=== PATIENT | female | born 1955 | race Caucasian/White ===

== ENCOUNTER 2017-08-21 08:15 | Outpatient (CLI) | payer BC ==
--- NOTE | 2017-08-22 14:15 | PET Report ---
PET/CT:08/21/17 08:15:00 CLINICAL: Lung cancer initial staging. RADIOPHARMACEUTICAL: 14.57mCi F18-FDG. COMPARISON: CT Chest 08/03/17 TECHNIQUE- Following intravenous injection of F-18 FDG and an approximately 60 minute uptake period, CT and PET images from the mid skull to the upper thighs were acquired with the patient in the fasted state. No contrast was administered. The CT protocol used for this PET CT study is designed for attenuation correction and anatomic localization of PET abnormalities. This final inspector truck trailer CT is not desired to produce and cannot replace, [id number] diagnostic CT scans with specific imaging protocols for different body parts and indications. Plasma glucose at the time of this test: 198g/dl. The standardized uptake values (SUV) are normalized to patient body weight and indicate the highest activity concentration (SUV max) in a given disease site. FINDINGS: Brain--Physiologic FDG uptake in the visualized regions of the brain. Neck--Physiologic FDG uptake . Chest--Physiologic FDG uptake in mediastinal blood pool and myocardium. Lungs--An FDG avid left lower lobe lung mass measures 7.0 x 5.8 x 5.5 cm with SUV 7.25. Pleura/pericardium--No abnormal uptake. A small left pleural effusion. Thoracic nodes--No abnormal uptake. Hepatobiliary--No abnormal uptake. Liver background SUV mean, as a reference for comparing FDG studies, is 2.7 . No liver mass. Spleen--No abnormal uptake. Pancreas--No abnormal uptake. Adrenal Glands--No abnormal uptake. Kidneys/Ureters/Bladder--No abnormal uptake. Abdominopelvic Nodes--No abnormal uptake. Bowel/Peritoneum/Mesentery--No abnormal uptake. Pelvic organs--No abnormal uptake. Bones/Soft Tissues--No abnormal uptake. No suspicious bone lesions. IMPRESSION- A 7 cm left lower lobe bronchogenic carcinoma. No evidence of metastasis.
== END 2017-08-21 08:16 | disposition home or self-care (01) ==
LOC: PET 08:15
PROVIDERS: ATTEND Internal Medicine
DX: C10.4 Malignant neoplasm of branchial cleft (principal); C34.92 Malignant neoplasm of unspecified part of left bronchus or lung; J90 Pleural effusion, not elsewhere classified; Z79.899 Other long term (current) drug therapy
CPT/HCPCS: 78815; 82962; A9552

== ENCOUNTER 2017-10-10 17:25 | Inpatient (IN) | payer BC ==
--- NOTE | 2017-10-10 19:04 | Emergency Department Report ---
HPI - General Chief Complaint: Eye Problems Time Seen by Provider: 10/10/17 18:38 - HPI HPI: This is a 62-year-old female who presents to the emergency department and her ECF with a complaint of blurry vision that started about 1 PM this afternoon. The patient's daughter is bedside as well and pointed out that her eyes do not appear to be moving appropriately and that this is a change from prior to today. She denies any headache, slurred speech, confusion or dizziness. She has a past medical history of COPD on 2 L nasal cannula, diabetes, lung cancer, anemia, chronic kidney disease, coronary artery disease with stent, hypertension. Her primary care physician is Dr. Limon. Her rubber press tender is Dr. Rodriguez. She has not taken anything for her symptoms prior to presentation. No recent travel. ED Past Medical Hx - Past Medical History Previous Medical History?: Yes Hx Hypertension: Yes Hx Heart Attack/AMI: Yes (stent) Hx Congestive Heart Failure: No Hx Diabetes: Yes Hx Deep Vein Thrombosis: No Hx Renal Disease: Yes Hx Asthma: No Hx COPD: Yes - Surgical History Past Surgical History?: Yes Hx Coronary Stent: Yes Hx Pacemaker: No Hx Internal Defibrillator: No Hx Cholecystectomy: Yes Additional Surgical History: CATARACT SURGERY - Social History Smoking Status: Never Smoker Substance Use Type: None - Medications Home Medications: Home Medications Medication Instructions Recorded Confirmed Last Taken Type AtorvaSTATin [Lipitor] 80 mg PO QHS 08/01/17 10/10/17 09/02/17 History Ezetimibe [Zetia] 10 mg PO QDAY 08/01/17 10/10/17 09/02/17 History Famotidine [Pepcid] 20 mg PO QDAY #30 tablet 09/10/17 10/10/17 Unknown Rx Amiodarone [Cordarone 200 MG TAB] 200 mg PO BID #60 tablet 09/17/17 10/10/17 Unknown Rx Ferrous Sulfate [Feosol 325 MG tab] 325 mg PO BID #60 tablet 09/17/17 10/10/17 Unknown Rx Insulin Detemir [Levemir] 8 units SUB-Q QHS #1 vial 09/17/17 10/10/17 Unknown Rx Metoprolol [Lopressor TAB] 25 mg PO TID #90 tablet 09/17/17 10/10/17 Unknown Rx Aspirin [Adult Low Dose Aspirin EC] 81 mg PO QDAY 10/10/17 10/10/17 Unknown History ED Review of Systems ROS: Stated complaint: BLURRED VISION Other details as noted in HPI Comment: All other systems reviewed and negative Constitutional: denies: chills, fever Eyes: vision change. denies: eye pain ENT: denies: ear pain, throat pain Respiratory: denies: cough, shortness of breath, wheezing Cardiovascular: denies: chest pain, palpitations Gastrointestinal: denies: abdominal pain, nausea, diarrhea Genitourinary: denies: urgency, dysuria, discharge Musculoskeletal: denies: back pain, joint swelling, arthralgia Skin: denies: rash, lesions Neurological: denies: headache, weakness, paresthesias Physical Exam - Physical Exam Vital Signs: Vital Signs 10/10/17 10/10/17 10/10/17 17:34 17:40 17:41 Temperature Pulse Rate 70 70 Respiratory 20 22 Rate Blood Pressure 136/76 [Right] O2 Sat by Pulse 68 L 67 L 91 Oximetry 10/10/17 10/10/17 17:42 17:44 Temperature 98.9 F Pulse Rate Respiratory 20 Rate Blood Pressure [Right] O2 Sat by Pulse 97 Oximetry ED Course Vital Signs 10/10/17 10/10/17 10/10/17 17:34 17:40 17:41 Temperature Pulse Rate 70 70 Respiratory 20 22 Rate Blood Pressure 136/76 [Right] O2 Sat by Pulse 68 L 67 L 91 Oximetry 10/10/17 10/10/17 17:42 17:44 Temperature 98.9 F Pulse Rate Respiratory 20 Rate Blood Pressure [Right] O2 Sat by Pulse 97 Oximetry - Consultations Consultation #1: I spoke to the telemedicine neurologist, Dr Cobb, who agrees with the plan for admission to the hospital and MRI and further evaluation. 10/11/17 00:25 ED Medical Decision Making - Lab Data Result diagrams: 10/10/17 19:00 10/10/17 19:00 - EKG Data -: EKG Interpreted by Me EKG shows normal: sinus rhythm, axis, intervals (prolonged QT and QTC intervals) , QRS complexes, ST-T waves (nonspecific and/or flattening of the T waves) Rate: normal - EKG Data When compared to previous EKG there are: changes noted (previous EKG showed atrial fibrillation) Interpretation: other (sinus rhythm, 68 bpm, prolonged QT and QTC intervals, flattening of the T waves) - Radiology Data Radiology results: report reviewed PROCEDURE: CT HEAD/BRAIN WO CON TECHNIQUE: Computerized tomography of the head was performed without contrast material. HISTORY: blurred vision, left eye no longer moving normally COMPARISON: Prior CT scan of the brain 09/03/2017 FINDINGS: Brain: There is no evidence of intracranial hemorrhage. No parenchymal hemorrhage is seen. No mass lesions or mass effect is identified. No abnormal extra-axial fluid collections or masses are seen. There is some decreased density seen in the periventricular white matter without mass effect. This is mildly asymmetric, a little more prominent on the left than the right which is unchanged. This does not exhibit any mass effect consistent with gliosis probably on the basis of microvascular disease or white matter changes of aging. Ventricles: The ventricles, sulcal pattern and fissures are prominent consistent with atrophy. Bones: No evidence of acute fracture. Paranasal sinuses: Visualized portions appear clear. Mastoid air cells: There opacification in numerous mastoid air cells bilaterally left side greater than right. This is new compared to the prior study consistent with acute mastoiditis. IMPRESSION: Stable CT of the brain showing evidence of moderate atrophy and gliosis. No acute intracranial abnormalities are identified. Interval development of bilateral mastoiditis left side worse than the right. - Medical Decision Making This patient presents after having acute blurred vision about 1 PM this afternoon. She was also found to have some abnormal extraocular motion and the left eye does not have adduction and also appears to be slightly superior compared to the right side. CT did not show any acute bleed, shift, mass or any ischemic changes at this time. However there is still concern for a posterior or brainstem stroke and the patient will require MRI. Telemedicine neurology was contacted and they agree with aspirin but patient is not a TPA candidate. She has some renal insufficiency, hypokalemia. She will be admitted to the hospital and has been accepted by the hospitalist, Dr. Hathaway. - Differential Diagnosis CVA, TIA, intranuclear ophthalmolplegia, Vertigo Critical Care Time: No Critical care attestation.: If time is entered above; I have spent that time in minutes in the direct care of this critically ill patient, excluding procedure time. ED Disposition Clinical Impression: Internuclear ophthalmoplegia of left eye, Blurred vision, Anemia, Hypokalemia Disposition: OP ADMIT IP TO THIS HOSP Is pt being admited?: Yes Condition: Stable Time of Disposition: 00:28
[2017-10-10 19:25] LABS: Basophils % (Auto) 0.2 % (0.0-1.8); Eosinophils % (Auto) 0.3 % (0.0-4.3); Hematocrit 25.2 % (30.3-42.9); Hemoglobin 7.9 gm/dl (10.1-14.3); Mean Corpuscular HGB Conc 31 % (30-34); Mean Corpuscular Hemoglobin 27 pg (28-32); Mean Corpuscular Volume 85 fl (79-97); Platelet Count 290 K/mm3 (140-440); Red Blood Count 2.95 M/mm3 (3.65-5.03); White Blood Count 10.6 K/mm3 (4.5-11.0)
[2017-10-10 19:33] LABS: Red Cell Distribution Width 21.2 % (13.2-15.2)
[2017-10-10 19:37] LABS: Albumin 2.2 g/dL (3.9-5); Albumin/Globulin Ratio 0.5 %; Bilirubin,Total 0.5 mg/dL (0.1-1.2); Calcium 8.1 mg/dL (8.4-10.2); Chloride 95.5 mmol/L (98-107); Total Protein 6.3 g/dL (6.3-8.2)
--- NOTE | 2017-10-10 20:10 | Cat Scan Report ---
FINAL REPORT PROCEDURE: CT HEAD/BRAIN WO CON TECHNIQUE: Computerized tomography of the head was performed without contrast material. HISTORY: blurred vision, left eye no longer moving normally COMPARISON: Prior CT scan of the brain 09/03/2017 FINDINGS: Brain: There is no evidence of intracranial hemorrhage. No parenchymal hemorrhage is seen. No mass lesions or mass effect is identified. No abnormal extra-axial fluid collections or masses are seen. There is some decreased density seen in the periventricular white matter without mass effect. This is mildly asymmetric, a little more prominent on the left than the right which is unchanged. This does not exhibit any mass effect consistent with gliosis probably on the basis of microvascular disease or white matter changes of aging. Ventricles: The ventricles, sulcal pattern and fissures are prominent consistent with atrophy. Bones: No evidence of acute fracture. Paranasal sinuses: Visualized portions appear clear. Mastoid air cells: There opacification in numerous mastoid air cells bilaterally left side greater than right. This is new compared to the prior study consistent with acute mastoiditis. IMPRESSION: Stable CT of the brain showing evidence of moderate atrophy and gliosis. No acute intracranial abnormalities are identified. Interval development of bilateral mastoiditis left side worse than the right.
[2017-10-10] MEDS ORDERED: K-DUR PO ONE (20:52)
--- NOTE | 2017-10-10 22:13 | History and Physical Report ---
History of Present Illness Date of examination: 10/10/17 History of present illness: 62-year-old with a history of coronary artery disease, hypertension, diabetes, end-stage renal disease, lung cancer was brought to the emergency room from rehab because she complained of blurred and double vision in the left eye. The daughter noticed that the left eye was not moving medially Review Of Systems: Constitutional: no weight loss Ears, eyes, nose, mouth and throat: no nasal congestion, no nasal discharge, no sinus pressure, blurry vision, diplopia Neck: No neck pain or rigidity. Cardiovascular: no chest pain, orthopnea, palpitations Respiratory: No shortness of breath, cough Gastrointestinal: no abdominal pain, hematochezia Genitourinary : no dysuria, frequency , hematuria Musculoskeletal: no muscle ache Integumentary: no rash, no pruritis Neurological: no parathesias, focal weakness Endocrine: no cold or heat intolerance, no polyuria or polydipsia Hematologic/Lymphatic: no easy bruising, no easy bleeding, no gland swelling Allergic/Immunologic: no urticaria, no angioedema. PAST MEDICAL HISTORY:coronary artery disease, hypertension, diabetes, chronic kidney disease, lung cancer PAST SURGICAL HISTORY: Cholecystectomy, cataract extraction FAILY HISTORY: Hypertension SOCIAL HISTORY: Quit smoking, no alcohol or drugs. Medications and Allergies Allergies Allergy/AdvReac Type Severity Reaction Status Date / Time lactose AdvReac Diarrhea Verified 09/08/17 11:59 Home Medications Medication Instructions Recorded Confirmed Last Taken Type AtorvaSTATin [Lipitor] 80 mg PO QHS 08/01/17 10/10/17 09/02/17 History Ezetimibe [Zetia] 10 mg PO QDAY 08/01/17 10/10/17 09/02/17 History Famotidine [Pepcid] 20 mg PO QDAY #30 tablet 09/10/17 10/10/17 Unknown Rx Amiodarone [Cordarone 200 MG TAB] 200 mg PO BID #60 tablet 09/17/17 10/10/17 Unknown Rx Ferrous Sulfate [Feosol 325 MG tab] 325 mg PO BID #60 tablet 09/17/17 10/10/17 Unknown Rx Metoprolol [Lopressor TAB] 25 mg PO TID #90 tablet 09/17/17 10/10/17 Unknown Rx Aspirin [Adult Low Dose Aspirin EC] 81 mg PO QDAY 10/10/17 10/10/17 Unknown History Apixaban [Eliquis] 5 mg PO Q12HR tablet 10/14/17 Unknown Rx Insulin Detemir [Levemir] 4 units SUB-Q QHS 30 Days units 10/14/17 Unknown Rx Exam - Physical Exam Narrative exam: Gen. appearance: Patient lying in bed in no acute distress HEENT: Normocephalic/atraumatic, pupils equal round reactive to light, left eye is unable to adductor otherwise extra ocular movements intact, no scleral icterus, no JVD or thyromegaly or nodule, neck is supple, mucous membrane moist , no erythema or exudate Heart: S1-S2, regular rate and rhythm Lungs: Clear to auscultation bilateral breathing comfortable Abdomen: Positive bowel sounds, nontender, nondistended, no organomegaly Extremities: No edema, cyanosis, clubbing Neuro:: Oriented 3 , cranial nerves II-12 intact, speech, motor intact Skin: No rash, nodules, warm dry - Constitutional Vitals: Temp Pulse Resp BP Pulse Ox 98.9 F 70 20 136/76 97 10/10/17 17:42 10/10/17 17:40 10/10/17 17:44 10/10/17 17:40 10/10/17 17:44 Results - Labs CBC & Chem 7: 10/20/17 06:56 10/14/17 07:36 Labs: Abnormal lab results 10/10/17 10/10/17 Range/Units 19:00 19:00 RBC 2.95 L (3.65-5.03) M/mm3 Hgb 7.9 L (10.1-14.3) gm/dl Hct 25.2 L (30.3-42.9) % MCH 27 L (28-32) pg RDW 21.2 H (13.2-15.2) % Lymph % (Auto) 9.9 L (13.4-35.0) % Lymph # 1.1 L (1.2-5.4) K/mm3 Seg Neutrophils % 83.1 H (40.0-70.0) % Seg Neutrophils # 8.8 H (1.8-7.7) K/mm3 Potassium 3.0 L (3.6-5.0) mmol/L Chloride 95.5 L (98-107) mmol/L Creatinine 1.7 H (0.7-1.2) mg/dL Glucose 185 H (65-100) mg/dL Calcium 8.1 L (8.4-10.2) mg/dL Alkaline Phosphatase 211 H (35-129) units/L Albumin 2.2 L (3.9-5) g/dL - Imaging and Cardiology CT Scan - head: report reviewed Assessment and Plan Assessment Intranuclear ophthalmoplegia, 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
[2017-10-10] MEDS ORDERED: DULCOLAX PR PRN (23:22)
[2017-10-10] MEDS ORDERED: SODIUM CHLORIDE FLUSH SYRINGE 10 ML IV PRN (23:22)
[2017-10-10] MEDS ORDERED: MILK OF MAGNESIA PO PRN (23:22)
[2017-10-10] MEDS ORDERED: TYLENOL PO PRN (23:22)
[2017-10-10] MEDS ORDERED: ZOFRAN IV PRN (23:22)
[2017-10-10] MEDS ORDERED: APRESOLINE IV PRN (23:22)
--- NOTE | 2017-10-11 06:17 | Consultation ---
History of Present Illness - Reason for Consult Consult date: 10/11/17 end stage renal disease, other (Anemia.) - History of Present Illness The patient is a 62-year-old AAF with history significant for CKD with ELKIN on hemodialysis, Hypertension, Type 2 diabetes, CAD, Lung cancer and Anemia was brought to the emergency room from rehab for further evaluation of double vision. The daughter noticed that the left eye was not moving properly. In the ER she was diagnosed with Ophthalmoplegia. Patient reports that the symptoms have improved. She is well known to our service and was last dialyzed 2 days ago. Past History Past Medical History: anemia, CAD, COPD, diabetes, dialysis, hypertension, renal failure Medications and Allergies Allergies Allergy/AdvReac Type Severity Reaction Status Date / Time lactose AdvReac Diarrhea Verified 09/08/17 11:59 Home Medications Medication Instructions Recorded Confirmed Last Taken Type AtorvaSTATin [Lipitor] 80 mg PO QHS 08/01/17 10/10/17 09/02/17 History Ezetimibe [Zetia] 10 mg PO QDAY 08/01/17 10/10/17 09/02/17 History Famotidine [Pepcid] 20 mg PO QDAY #30 tablet 09/10/17 10/10/17 Unknown Rx Amiodarone [Cordarone 200 MG TAB] 200 mg PO BID #60 tablet 09/17/17 10/10/17 Unknown Rx Ferrous Sulfate [Feosol 325 MG tab] 325 mg PO BID #60 tablet 09/17/17 10/10/17 Unknown Rx Insulin Detemir [Levemir] 8 units SUB-Q QHS #1 vial 09/17/17 10/10/17 Unknown Rx Metoprolol [Lopressor TAB] 25 mg PO TID #90 tablet 09/17/17 10/10/17 Unknown Rx Aspirin [Adult Low Dose Aspirin EC] 81 mg PO QDAY 10/10/17 10/10/17 Unknown History Active Meds: Active Medications Acetaminophen (Tylenol) 650 mg PO Q4H PRN PRN Reason: Pain, Mild (1-3) Aspirin (Aspirin) 325 mg PO QDAY SHADE Bisacodyl (Dulcolax) 10 mg [place] QDAY PRN PRN Reason: Constipation Hydralazine HCl (Apresoline) 5 mg IV Q6H PRN PRN Reason: Keep SBP between 160-185 mm Hg Magnesium Hydroxide (Milk Of Magnesia) 30 ml PO Q4H PRN PRN Reason: Constipation Ondansetron HCl (Zofran) 4 mg IV Q8H PRN PRN Reason: N/V unrelieved by Reglan Sodium Chloride (Sodium Chloride Flush Syringe 10 Ml) 10 ml IV PRN PRN PRN Reason: LINE FLUSH Review of Systems Constitutional: no weight loss, no weight gain, no fever, no chills, no anorexia , no weakness Ears, nose, mouth and throat: no epistaxis Breasts: deferred Cardiovascular: edema, high blood pressure, leg edema, no chest pain, no orthopnea, no palpitations, no lightheadedness, no shortness of breath Respiratory: cough, no hemoptysis Gastrointestinal: no abdominal pain, no nausea, no vomiting, no hematemesis, no melena Genitourinary Female: no dysuria, no hematuria Rectal: no bleeding Musculoskeletal: no redness of joints, no hot joints Integumentary: no rash, no wounds, no jaundice Neurological: double vision, no paralysis, no headaches, no confusion Psychiatric: no disorientation Hematologic/Lymphatic: no easy bleeding Exam - Vital Signs Vital signs: Vital Signs Pulse Resp Pulse Ox 70 20 68 L 10/10/17 17:34 10/10/17 17:34 10/10/17 17:34 - General Appearance General appearance: well-developed, appears stated age, other (no distress, right IJ tunnel catheter) EENT: ATNC, PERRL, hearing intact Neck: Present: neck supple, trachea midline Respiratory: Clear to Ascultation Heart: regular, S1S2, no murmurs Gastrointestinal: Present: normoactive bowel sounds. Absent: tenderness, distended Integumentary: no rash, warm and dry Neurologic: no focal deficit, no asterixis, alert and oriented x3 Musculoskeletal: Present: other (trace pedal edema, right arm AVG with no bruit) Psychiatric: mood/affect appropriate, cooperative Results - Lab Results 10/10/17 19:00 10/11/17 04:54 Most recent lab results Calcium 8.1 mg/dL (8.4-10.2) L 10/10/17 19:00 Assessment and Plan 1. ELKIN superimposed on CKD stage 4: Creatinine is 1.7. 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 No HD today. 2. Hypokalemia: Replete k. 3. Anemia. 4. Intranuclear ophthalmoplegia, rule out CVA: Symptoms have improved. 5. Diabetes type 2. 6. Lung cancer. 7. Hypertension.
[2017-10-11 07:53] LABS: Calcium 8.8 mg/dL (8.4-10.2); Chloride 93.6 mmol/L (98-107); Potassium 3.1 mmol/L (3.6-5.0)
[2017-10-11] MEDS ORDERED: K-DUR PO NR (08:54)
--- NOTE | 2017-10-11 10:42 | Magnetic Resonance Report ---
MRI OF THE BRAIN WITHOUT CONTRAST: HISTORY: Stroke PROCEDURE: Multiplanar, multisequence MR imaging of the brain without IV contrast was performed. FINDINGS: Compared to the CT head performed 10/10/17. Diffusion imaging on MRI demonstrates numerous tiny foci of diffusion restriction bilaterally measuring up to 1 cm. There are multiple small foci of diffusion restriction in the right frontal lobe and posterior left frontal lobe. A few small foci of diffusion restriction identified in the right occipital region. A 5 mm focus of diffusion restriction is identified in the right cerebellum. There are 2 foci of diffusion restriction in the left cerebellum measuring up to 1 cm. There is no evidence for hemorrhage, mass or extra-axial fluid collection. Advanced volume loss and moderate chronic white matter changes are identified. No chronic infarct is detected. The midline structures are central. The basal cisterns are patent. Normal ventricular size. The orbital cavities and sella turcica demonstrate no abnormality. The visualized paranasal sinuses and mastoid air cells are well aerated. IMPRESSION: Multiple bilateral foci of subacute ischemia are identified in the frontal lobes, right occipital lobe and bilateral cerebellar hemispheres. Many of these foci appear to be within watershed regions. A global hypoperfusion episode could be considered. This could also represent multiple bilateral emboli. Please correlate with the patient's clinical history and presentation.
--- NOTE | 2017-10-11 11:33 | Progress Note ---
Assessment and Plan Assessment and plan: he patient is a 62-year-old AAF with history significant for CKD with ELKIN on hemodialysis, Hypertension, Type 2 diabetes, CAD, Lung cancer and Anemia was brought to the emergency room from rehab for further evaluation of double vision. The daughter noticed that the left eye was not moving properly. In the ER she was diagnosed with Ophthalmoplegia. symptoms have now resolved MRI brain, image reviewed Multiple bilateral foci of subacute ischemia are identified in the frontal lobes, right occipital lobe and bilateral cerebellar hemispheres. Many of these foci appear to be within watershed regions. A global hypoperfusion episode could be considered. This could also represent multiple bilateral emboli. Please correlate with the patient's clinical history and presentation. Acute CVA continue cva protocol, allow permissive htn, optimize meds for secondary ppx -neurology consult pending MRI confirms CVA, no blockages on MRA brain or carotid dopplers, echo report pending -LDL at goal at 54 ELKIN superimposed on CKD stage 4: Creatinine is 1.7. case dw nephrology Monitor renal function and QUALITY CONTROL DIRECTOR needs. No HD today. Diabetes type 2 continue insulins Hypertension Coronary artery disease History Interval history: Ophthalmoplegia has resolved per patient and her family members. No focal weakness, no change in mental status Review of systems Constitutional: No fevers, no malaise, no joint pains CVS: No chest pain, no orthopnea, no dyspnea on exertion, no pedal edema GI: No abdominal pain, no diarrhea, no vomiting, no constipation Respiratory: No shortness of breath, no wheezing, no coughing Hospitalist Physical - Physical exam Narrative exam: General.: Appears well, no distress, nontoxic HEENT: Moist mucous membranes, extraocular muscles intact, no lymphadenopathy Neck: supple Cardiac: S1-S2 heard Lungs: clear to auscultation bilaterally Abdomen: soft , nontender, nondistended, bowel sounds positive Extremities: no edema clubbing or cyanosis Skin: no rash or lesions Neurologic: no gross focal deficits, parkinsonism noticed such as lip smacking Cognitive deficit, P a sister ago with complex questions or commands There is no ophthalmoplegia on my exam - Constitutional Vitals: Temp Pulse Resp BP Pulse Ox 98.5 F 73 17 176/84 87 10/11/17 05:52 10/11/17 05:52 10/11/17 05:52 10/11/17 05:52 10/11/17 05:52 Results - Labs CBC & Chem 7: 10/12/17 10:35 10/12/17 10:35 Labs: Laboratory Last Values WBC 10.6 K/mm3 (4.5-11.0) 10/10/17 19:00 RBC 2.95 M/mm3 (3.65-5.03) L 10/10/17 19:00 Hgb 7.9 gm/dl (10.1-14.3) L 10/10/17 19:00 Hct 25.2 % (30.3-42.9) L 10/10/17 19:00 MCV 85 fl (79-97) 10/10/17 19:00 MCH 27 pg (28-32) L 10/10/17 19:00 MCHC 31 % (30-34) 10/10/17 19:00 RDW 21.2 % (13.2-15.2) H 10/10/17 19:00 Plt Count 290 K/mm3 (140-440) 10/10/17 19:00 Lymph % (Auto) 9.9 % (13.4-35.0) L 10/10/17 19:00 [place] % (Auto) 6.5 % (0.0-7.3) 10/10/17 19:00 Eos % (Auto) 0.3 % (0.0-4.3) 10/10/17 19:00 Baso % (Auto) 0.2 % (0.0-1.8) 10/10/17 19:00 Lymph # 1.1 K/mm3 (1.2-5.4) L 10/10/17 19:00 [place] # 0.7 K/mm3 (0.0-0.8) 10/10/17 19:00 Eos # 0.0 K/mm3 (0.0-0.4) 10/10/17 19:00 Baso # 0.0 K/mm3 (0.0-0.1) 10/10/17 19:00 Seg Neutrophils % 83.1 % (40.0-70.0) H 10/10/17 19:00 Seg Neutrophils # 8.8 K/mm3 (1.8-7.7) H 10/10/17 19:00 Sodium 136 mmol/L (137-145) L 10/11/17 04:54 Potassium 3.1 mmol/L (3.6-5.0) L 10/11/17 04:54 Chloride 93.6 mmol/L (98-107) L 10/11/17 04:54 Carbon Dioxide 26 mmol/L (22-30) 10/11/17 04:54 Anion Gap 20 mmol/L 10/11/17 04:54 BUN 15 mg/dL (7-17) 10/11/17 04:54 Creatinine 1.7 mg/dL (0.7-1.2) H 10/11/17 04:54 Estimated GFR 30 ml/min 10/11/17 04:54 BUN/Creatinine Ratio 9 % 10/11/17 04:54 Glucose 228 mg/dL (65-100) H 10/11/17 04:54 Calcium 8.8 mg/dL (8.4-10.2) 10/11/17 04:54 Total Bilirubin 0.50 mg/dL (0.1-1.2) 10/10/17 19:00 AST 27 units/L (5-40) 10/10/17 19:00 ALT 38 units/L (7-56) 10/10/17 19:00 Alkaline Phosphatase 211 units/L (35-129) H 10/10/17 19:00 Total Protein 6.3 g/dL (6.3-8.2) 10/10/17 19:00 Albumin 2.2 g/dL (3.9-5) L 10/10/17 19:00 Albumin/Globulin Ratio 0.5 % 10/10/17 19:00 Triglycerides 77 mg/dL (2-149) 10/11/17 04:54 Cholesterol 123 mg/dL (50-199) 10/11/17 04:54 LDL Cholesterol Direct 52 mg/dL (50-130) 10/11/17 04:54 HDL Cholesterol 56 mg/dL (40-59) 10/11/17 04:54 Cholesterol/HDL Ratio 2.19 % 10/11/17 04:54
[2017-10-11] MEDS ORDERED: D50W (25GM) Syringe IV PRN (11:35)
--- NOTE | 2017-10-11 12:05 | Magnetic Resonance Report ---
MRA HEAD WITHOUT CONTRAST HISTORY: Stroke. Iuto-na-upsswl imaging with MIP reformations [place] is submitted. The arteries appear widely patent and free of hemodynamically significant stenosis, aneurysm or dissection. IMPRESSION: Unremarkable MRA head.
[2017-10-11] MEDS: NOVOLOG SUB-Q SCH ×2 (17:00→22:09)
[2017-10-11] MEDS: LOVENOX SUB-Q SCH (17:52)
[2017-10-11] MEDS: ASPIRIN PO SCH (17:52)
[2017-10-11] MEDS: FEOSOL PO SCH (21:59)
[2017-10-11] MEDS: CORDARONE PO SCH (21:59)
[2017-10-11] MEDS: LEVEMIR SUB-Q SCH (22:01)
[2017-10-12] MEDS: NOVOLOG SUB-Q SCH ×4 (08:17→21:54)
--- NOTE | 2017-10-12 09:31 | Progress Note ---
Assessment and Plan 1. ELKIN superimposed on CKD stage 4: Creatinine continue to increase. Patient will likely need HD. Monitor renal function and INSPECTOR ADVANCED COMPOSITE needs. 2. Hypokalemia: K level is better. 3. Anemia: Continue Oral Iron. Epogen. 4. CVA: Presented with Intranuclear ophthalmoplegia. Symptoms have improved. 5. Diabetes type 2. 6. Lung cancer. 7. Hypertension. Subjective Date of service: 10/12/17 Interval history: Patient is feeling better. Objective - Vital Signs Vital signs: Vital Signs - 12hr 10/11/17 10/12/17 10/12/17 22:00 00:21 01:25 Temperature Pulse Rate 74 Respiratory 20 Rate Blood Pressure 139/73 O2 Sat by Pulse Oximetry 10/12/17 10/12/17 10/12/17 04:27 04:28 05:07 Temperature 97.4 F L Pulse Rate 79 80 Respiratory 18 18 Rate Blood Pressure 159/79 O2 Sat by Pulse 92 Oximetry - General Appearance General appearance: well-developed, appears stated age, other (no distress, right IJ tunnel catheter) EENT: ATNC, PERRL Neck: supple Respiratory: Present: Clear to Ascultation Cardiology: regular, S1S2, no murmurs Gastrointestinal: normoactive bowel sounds, no tenderness, no distended Integumentary: no rash, warm and dry Neurologic: no focal deficit, no asterixis, alert and oriented x3 Musculoskeletal: other (trace pedal edema) Psychiatric: mood/affect appropriate, cooperative - Lab 10/14/17 07:36 10/14/17 07:36 Most recent lab results Calcium 8.8 mg/dL (8.4-10.2) 10/11/17 04:54
[2017-10-12 10:45] LABS: Hematocrit 24.5 % (30.3-42.9); Hemoglobin 7.5 gm/dl (10.1-14.3); Mean Corpuscular HGB Conc 31 % (30-34); Mean Corpuscular Hemoglobin 26 pg (28-32); Mean Corpuscular Volume 85 fl (79-97); Platelet Count 252 K/mm3 (140-440); Red Blood Count 2.88 M/mm3 (3.65-5.03); White Blood Count 10.4 K/mm3 (4.5-11.0)
[2017-10-12 10:46] LABS: Red Cell Distribution Width 20.9 % (13.2-15.2)
[2017-10-12 11:20] LABS: Calcium 8.9 mg/dL (8.4-10.2); Magnesium 2.1 mg/dL (1.7-2.3); Phosphorous 2.7 mg/dL (2.5-4.5)
[2017-10-12] MEDS: ZETIA PO SCH (12:48)
[2017-10-12] MEDS: FEOSOL PO SCH ×2 (12:48→21:53)
[2017-10-12] MEDS: LOVENOX SUB-Q SCH (12:49)
[2017-10-12] MEDS: PEPCID PO SCH (12:49)
[2017-10-12] MEDS: ASPIRIN PO SCH (12:49)
[2017-10-12] MEDS: CORDARONE PO SCH ×2 (12:51→21:53)
--- NOTE | 2017-10-12 13:25 | Progress Note ---
Assessment and Plan Assessment and plan: he patient is a 62-year-old AAF with history significant for CKD with ELKIN on hemodialysis, Hypertension, Type 2 diabetes, CAD, Lung cancer and Anemia was brought to the emergency room from rehab for further evaluation of double vision. The daughter noticed that the left eye was not moving properly. In the ER she was diagnosed with Ophthalmoplegia. symptoms have now resolved MRI brain, image reviewed Multiple bilateral foci of subacute ischemia are identified in the frontal lobes, right occipital lobe and bilateral cerebellar hemispheres. Many of these foci appear to be within watershed regions. A global hypoperfusion episode could be considered. This could also represent multiple bilateral emboli. Please correlate with the patient's clinical history and presentation. Acute CVA continue cva protocol, allow permissive htn, optimize meds for secondary ppx -neurology consult pending MRI confirms CVA, no blockages on MRA brain or carotid dopplers, echo report pending -LDL at goal at 54 ELKIN superimposed on CKD stage 4: Creatinine is 1.7. case dw nephrology Monitor renal function and MANAGER OF SUPPLY CHAIN needs. No HD today. Diabetes type 2 continue insulins Hypertension Coronary artery disease History Interval history: Ophthalmoplegia has resolved per patient and her family members. No focal weakness, no change in mental status Review of systems Constitutional: No fevers, no malaise, no joint pains CVS: No chest pain, no orthopnea, no dyspnea on exertion, no pedal edema GI: No abdominal pain, no diarrhea, no vomiting, no constipation Respiratory: No shortness of breath, no wheezing, no coughing Hospitalist Physical - Physical exam Narrative exam: General.: Appears well, no distress, nontoxic HEENT: Moist mucous membranes, extraocular muscles intact, no lymphadenopathy Neck: supple Cardiac: S1-S2 heard Lungs: clear to auscultation bilaterally Abdomen: soft , nontender, nondistended, bowel sounds positive Extremities: no edema clubbing or cyanosis Skin: no rash or lesions Neurologic: no gross focal deficits, parkinsonism noticed such as lip smacking Cognitive deficit, P a sister ago with complex questions or commands There is no ophthalmoplegia on my exam - Constitutional Vitals: Temp Pulse Resp BP Pulse Ox 97.4 F L 76 18 159/79 92 10/12/17 05:07 10/12/17 11:41 10/12/17 04:28 10/12/17 04:27 10/12/17 04:27 Results - Labs CBC & Chem 7: 10/12/17 10:35 10/12/17 10:35 Labs: Laboratory Last Values WBC 10.4 K/mm3 (4.5-11.0) 10/12/17 10:35 RBC 2.88 M/mm3 (3.65-5.03) L 10/12/17 10:35 Hgb 7.5 gm/dl (10.1-14.3) L 10/12/17 10:35 Hct 24.5 % (30.3-42.9) L 10/12/17 10:35 MCV 85 fl (79-97) 10/12/17 10:35 MCH 26 pg (28-32) L 10/12/17 10:35 MCHC 31 % (30-34) 10/12/17 10:35 RDW 20.9 % (13.2-15.2) H 10/12/17 10:35 Plt Count 252 K/mm3 (140-440) 10/12/17 10:35 Lymph % (Auto) 9.9 % (13.4-35.0) L 10/10/17 19:00 [place] % (Auto) 6.5 % (0.0-7.3) 10/10/17 19:00 Eos % (Auto) 0.3 % (0.0-4.3) 10/10/17 19:00 Baso % (Auto) 0.2 % (0.0-1.8) 10/10/17 19:00 Lymph # 1.1 K/mm3 (1.2-5.4) L 10/10/17 19:00 [place] # 0.7 K/mm3 (0.0-0.8) 10/10/17 19:00 Eos # 0.0 K/mm3 (0.0-0.4) 10/10/17 19:00 Baso # 0.0 K/mm3 (0.0-0.1) 10/10/17 19:00 Seg Neutrophils % 83.1 % (40.0-70.0) H 10/10/17 19:00 Seg Neutrophils # 8.8 K/mm3 (1.8-7.7) H 10/10/17 19:00 Sodium 134 mmol/L (137-145) L 10/12/17 10:35 Potassium 4.0 mmol/L (3.6-5.0) D 10/12/17 10:35 Chloride 97.0 mmol/L (98-107) L 10/12/17 10:35 Carbon Dioxide 22 mmol/L (22-30) 10/12/17 10:35 Anion Gap 19 mmol/L 10/12/17 10:35 BUN 16 mg/dL (7-17) 10/12/17 10:35 Creatinine 2.0 mg/dL (0.7-1.2) H 10/12/17 10:35 Estimated GFR 25 ml/min 10/12/17 10:35 BUN/Creatinine Ratio 8 % 10/12/17 10:35 Glucose 107 mg/dL (65-100) H 10/12/17 10:35 POC Glucose < 40 (70-105) L 10/12/17 08:16 Calcium 8.9 mg/dL (8.4-10.2) 10/12/17 10:35 Phosphorus 2.70 mg/dL (2.5-4.5) 10/12/17 10:35 Magnesium 2.10 mg/dL (1.7-2.3) 10/12/17 10:35 Total Bilirubin 0.50 mg/dL (0.1-1.2) 10/10/17 19:00 AST 27 units/L (5-40) 10/10/17 19:00 ALT 38 units/L (7-56) 10/10/17 19:00 Alkaline Phosphatase 211 units/L (35-129) H 10/10/17 19:00 Total Protein 6.3 g/dL (6.3-8.2) 10/10/17 19:00 Albumin 2.2 g/dL (3.9-5) L 10/10/17 19:00 Albumin/Globulin Ratio 0.5 % 10/10/17 19:00 Triglycerides 77 mg/dL (2-149) 10/11/17 04:54 Cholesterol 123 mg/dL (50-199) 10/11/17 04:54 LDL Cholesterol Direct 52 mg/dL (50-130) 10/11/17 04:54 HDL Cholesterol 56 mg/dL (40-59) 10/11/17 04:54 Cholesterol/HDL Ratio 2.19 % 10/11/17 04:54
[2017-10-12] MEDS: LEVEMIR SUB-Q SCH (21:53)
[2017-10-13 06:13] LABS: Hematocrit 23.6 % (30.3-42.9); Hemoglobin 7.4 gm/dl (10.1-14.3); Mean Corpuscular HGB Conc 31 % (30-34); Mean Corpuscular Hemoglobin 26 pg (28-32); Mean Corpuscular Volume 84 fl (79-97); Platelet Count 281 K/mm3 (140-440); Red Blood Count 2.82 M/mm3 (3.65-5.03); Red Cell Distribution Width 21.4 % (13.2-15.2); White Blood Count 9.6 K/mm3 (4.5-11.0)
[2017-10-13 06:34] LABS: Chloride 99.5 mmol/L (98-107); Potassium 3.5 mmol/L (3.6-5.0)
--- NOTE | 2017-10-13 08:08 | Progress Note ---
Assessment and Plan 1. ELKIN superimposed on CKD stage 4: Creatinine continue to increase. Patient will likely need HD tomorrow. Monitor renal function and PENSIONS RETIREMENT PLAN SPECIALIST needs. 2. Hypokalemia: Replete k. 3. Anemia: Continue Oral Iron. Epogen today. 4. CVA: Presented with Intranuclear ophthalmoplegia. Symptoms have improved. 5. Diabetes type 2. 6. Lung cancer. 7. Hypertension. Subjective Date of service: 10/13/17 Interval history: Patient is doing ok. Objective - Vital Signs Vital signs: Vital Signs - 12hr 10/12/17 10/12/17 10/13/17 22:00 23:59 00:57 Temperature 98.4 F Pulse Rate 81 82 Respiratory 18 20 Rate Blood Pressure 144/71 [Right] O2 Sat by Pulse 95 Oximetry - General Appearance General appearance: well-developed, appears stated age, other (no distress, right IJ tunnel catheter) EENT: ATNC, PERRL, mucous membranes moist, hearing intact Neck: supple Respiratory: Present: Clear to Ascultation Cardiology: regular, S1S2, no murmurs Gastrointestinal: normoactive bowel sounds, no tenderness, no distended Integumentary: no rash Neurologic: no focal deficit, no asterixis Musculoskeletal: other (trace pedal edema and dependent edema noted, left arm AVG with no bruit) Psychiatric: mood/affect appropriate, cooperative - Lab 10/13/17 05:19 10/13/17 05:19 Most recent lab results Calcium 9.0 mg/dL (8.4-10.2) 10/13/17 05:19 Phosphorus 2.70 mg/dL (2.5-4.5) 10/12/17 10:35 Magnesium 2.10 mg/dL (1.7-2.3) 10/12/17 10:35
--- NOTE | 2017-10-13 08:09 | History and Physical Report ---
History of Present Illness Date of examination: 10/13/17 Date of admission: 10/10/17 22:12 Chief complaint: NEUROLOGY CONSULTATION NOTE: CC: I am asked to see this 62 AA F for eval of double vision with decreased movement in her left eye of several days duration, now resolved. HPI: the patient has a background Hx of COPD on nasal O2, DM2, Lung CA, ESRD on HD creat today 2.3, HTN, CAD s/p stenting, and was recently in rehab after hospitialization here approx 3 weeks ago because of deconditioning. While at the rehab she experienced on 10/10 double vision. Her daughter who visits her every day and with whom I spoke, observed that the patients left eye would not move inward, downward and was angled upward. the patient was brought to the ED, a dx of ALEJO was made, a head CT showed only volume loss and SVID ( images reviewed) and a head MRI showed multiple tiny infarcts by DWI imaging in the right frontal lobe, right occipital lobe and both cerebral hemispheres images reviewed). MRA and carotid ultrasound show no sig stenotic lesions, 2S Echo shows EF of 40 - 50%, no elevation of WBC or temp. Sx were fully resolved after ?two days. No other neuro deficits were observed or experienced. ROS: no prior episodes of diplopia or of focal neuro deficits. An 11 point ROS is negative. PMH see above SH/FH not re-reviewed MEDS/Allergies - see chart EXAM HEENT - nl, patient has orofacial buccal dyskinesia secondary to not having her false teeth in place. NECK - supple, no bruits COR - no m, rubs, gallops LUNGS - clear to A ABD soft, bs nl EXTREM - thin, no edema, no trauma NEURO EXAM MS - alert, oriented x 3, speech is sparse but can repeat well, follow commands well and quickly CN - 2 - 12 nl, no EOM abn at this time, no nystagmus, pupils both 4 mm diam and react to bright light MOT - nl strength both arms prox and dist, can lift both legs off bed but still weak in 4+/5 range prox more than dist CEREB - fnf OK DTRs - uniformly absent UE and LE, great toes moot in response to plantar stim DX IMP: 1. 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 The MRI findings do NOT account for this. 2. Multiple recent tiny cerebral infarcts in multiple distributions, anterior and posterior circulations, suggest a micro-embolic shower from a common proximal source- ie the heart. Occult SBE with no fever and no increase in WBC in an older patient is possible. 3. Multiple Med Dxs as docutmented above. RECC: 1. Get sed rate and blood cult x 2 to complete workup. If neg/nl, ok to dc back to rehab from neuro point of view, for further rx of deconditioning. 2. Continue ASA 325 mg daily 3. Go from there, call as needed. Kalpana Davis MD Past History Past Medical History: anemia, CAD, COPD, diabetes, dialysis, hypertension, renal failure Medications and Allergies Allergies Allergy/AdvReac Type Severity Reaction Status Date / Time lactose AdvReac Diarrhea Verified 09/08/17 11:59 Home Medications Medication Instructions Recorded Confirmed Last Taken Type AtorvaSTATin [Lipitor] 80 mg PO QHS 08/01/17 10/10/17 09/02/17 History Ezetimibe [Zetia] 10 mg PO QDAY 08/01/17 10/10/17 09/02/17 History Famotidine [Pepcid] 20 mg PO QDAY #30 tablet 09/10/17 10/10/17 Unknown Rx Amiodarone [Cordarone 200 MG TAB] 200 mg PO BID #60 tablet 09/17/17 10/10/17 Unknown Rx Ferrous Sulfate [Feosol 325 MG tab] 325 mg PO BID #60 tablet 09/17/17 10/10/17 Unknown Rx Insulin Detemir [Levemir] 8 units SUB-Q QHS #1 vial 09/17/17 10/10/17 Unknown Rx Metoprolol [Lopressor TAB] 25 mg PO TID #90 tablet 09/17/17 10/10/17 Unknown Rx Aspirin [Adult Low Dose Aspirin EC] 81 mg PO QDAY 10/10/17 10/10/17 Unknown History Active Meds: Active Medications Acetaminophen (Tylenol) 650 mg PO Q4H PRN PRN Reason: Pain, Mild (1-3) Amiodarone HCl (Cordarone) 200 mg PO BID [facility] Last Admin: 10/12/17 21:53 Dose: 200 mg Aspirin (Aspirin) 325 mg PO QDAY [facility] Last Admin: 10/12/17 12:49 Dose: 325 mg Atorvastatin Calcium (Lipitor) 80 mg PO QHS [facility] Last Admin: 10/12/17 21:54 Dose: 80 mg Bisacodyl (Dulcolax) 10 mg HI QDAY PRN PRN Reason: Constipation Dextrose (D50w (25gm) Syringe) 50 ml IV PRN PRN PRN Reason: Hypoglycemia Ezetimibe (Zetia) 10 mg PO QDAY [facility] Last Admin: 10/12/17 12:48 Dose: 10 mg Enoxaparin Sodium (Lovenox) 30 mg SUB-Q Q24HR [facility] Last Admin: 10/12/17 12:49 Dose: 30 mg Famotidine (Pepcid) 20 mg PO QDAY [facility] Last Admin: 10/12/17 12:49 Dose: 20 mg Ferrous Sulfate (Feosol) 325 mg PO BID [facility] Last Admin: 10/12/17 21:53 Dose: 325 mg Hydralazine HCl (Apresoline) 5 mg IV Q6H PRN PRN Reason: Keep SBP between 160-185 mm Hg Insulin Aspart (Novolog) 0 units SUB-Q [facility] PRN Reason: Protocol Last Admin: 10/12/17 21:54 Dose: Not Given Insulin Detemir (Levemir) 8 units SUB-Q QHS [facility] Last Admin: 10/12/17 21:53 Dose: 8 units Ondansetron HCl (Zofran) 4 mg IV Q8H PRN PRN Reason: N/V unrelieved by Reglan Sodium Chloride (Sodium Chloride Flush Syringe 10 Ml) 10 ml IV PRN PRN PRN Reason: LINE FLUSH Physical Examination - Vital Signs Vital Signs: Vital Signs Pulse Resp Pulse Ox 70 20 68 L 10/10/17 17:34 10/10/17 17:34 10/10/17 17:34 Results - Laboratory Findings CBC and BMP: 10/13/17 05:19 10/13/17 05:19 Abnormal Lab Findings: Abnormal Labs 10/10/17 10/10/17 10/11/17 19:00 19:00 04:54 RBC 2.95 L Hgb 7.9 L Hct 25.2 L MCH 27 L RDW 21.2 H Lymph % (Auto) 9.9 L Lymph # 1.1 L Seg Neutrophils % 83.1 H Seg Neutrophils # 8.8 H Sodium 136 L Potassium 3.0 L 3.1 L Chloride 95.5 L 93.6 L BUN Creatinine 1.7 H 1.7 H Glucose 185 H 228 H POC Glucose Calcium 8.1 L Alkaline Phosphatase 211 H Albumin 2.2 L 10/11/17 10/11/17 10/11/17 08:13 13:18 16:53 RBC Hgb Hct MCH RDW Lymph % (Auto) Lymph # Seg Neutrophils % Seg Neutrophils # Sodium Potassium Chloride BUN Creatinine Glucose POC Glucose 286 H 251 H 335 H Calcium Alkaline Phosphatase Albumin 10/11/17 10/12/17 10/12/17 21:52 08:16 10:35 RBC Hgb Hct MCH RDW Lymph % (Auto) Lymph # Seg Neutrophils % Seg Neutrophils # Sodium 134 L Potassium Chloride 97.0 L BUN Creatinine 2.0 H Glucose 107 H POC Glucose 371 H < 40 L Calcium Alkaline Phosphatase Albumin 10/12/17 10/12/17 10/12/17 10:35 12:28 17:33 RBC 2.88 L Hgb 7.5 L Hct 24.5 L MCH 26 L RDW 20.9 H Lymph % (Auto) Lymph # Seg Neutrophils % Seg Neutrophils # Sodium Potassium Chloride BUN Creatinine Glucose POC Glucose 135 H 274 H Calcium Alkaline Phosphatase Albumin 10/12/17 10/13/17 10/13/17 21:50 05:19 05:19 RBC 2.82 L Hgb 7.4 L Hct 23.6 L MCH 26 L RDW 21.4 H Lymph % (Auto) Lymph # Seg Neutrophils % Seg Neutrophils # Sodium Potassium 3.5 L Chloride BUN 18 H Creatinine 2.3 H Glucose 125 H POC Glucose 289 H Calcium Alkaline Phosphatase Albumin
[2017-10-13] MEDS: NOVOLOG SUB-Q SCH ×4 (08:23→21:42)
[2017-10-13] MEDS ORDERED: K-DUR PO NR (08:30)
[2017-10-13] MEDS: FEOSOL PO SCH ×2 (10:24→21:22)
[2017-10-13] MEDS: ASPIRIN PO SCH (10:24)
[2017-10-13] MEDS: PEPCID PO SCH (10:24)
[2017-10-13] MEDS: ZETIA PO SCH (10:24)
[2017-10-13] MEDS: LOVENOX SUB-Q SCH (10:25)
[2017-10-13] MEDS: CORDARONE PO SCH ×2 (10:25→21:21)
--- NOTE | 2017-10-13 12:50 | Progress Note ---
Assessment and Plan Assessment and plan: he patient is a 62-year-old AAF with history significant for CKD with ELKIN on hemodialysis, Hypertension, Type 2 diabetes, CAD, Lung cancer and Anemia was brought to the emergency room from rehab for further evaluation of double vision. The daughter noticed that the left eye was not moving properly. In the ER she was diagnosed with Ophthalmoplegia. symptoms have now resolved MRI brain, image reviewed Multiple bilateral foci of subacute ischemia are identified in the frontal lobes, right occipital lobe and bilateral cerebellar hemispheres. Many of these foci appear to be within watershed regions. A global hypoperfusion episode could be considered. This could also represent multiple bilateral emboli. Please correlate with the patient's clinical history and presentation. Acute CVA continue cva protocol, allow permissive htn, optimize meds for secondary ppx -case dw neurology MRI confirms CVA, no blockages on MRA brain or carotid dopplers, echo shows EF 50%, no other significant findings -LDL at goal at 54 ELKIN superimposed on CKD stage 4: vasomotor nephropathy Creatinine is 1.7. case dw nephrology Monitor renal function and AREA CAPTAIN needs. HD as needed Diabetes type 2 continue insulins Hypertension Coronary artery disease Lung SCC with hypercoaguable state will dw with Neurology the utility of anticoagulation for this patient History Interval history: Ophthalmoplegia has resolved per patient and her family members. No focal weakness, no change in mental status Review of systems Constitutional: No fevers, no malaise, no joint pains CVS: No chest pain, no orthopnea, no dyspnea on exertion, no pedal edema GI: No abdominal pain, no diarrhea, no vomiting, no constipation Respiratory: No shortness of breath, no wheezing, no coughing Hospitalist Physical - Physical exam Narrative exam: General.: Appears well, no distress, nontoxic HEENT: Moist mucous membranes, extraocular muscles intact, no lymphadenopathy Neck: supple Cardiac: S1-S2 heard Lungs: clear to auscultation bilaterally Abdomen: soft , nontender, nondistended, bowel sounds positive Extremities: no edema clubbing or cyanosis Skin: no rash or lesions Neurologic: no gross focal deficits, parkinsonism noticed such as lip smacking Cognitive deficit, P a sister ago with complex questions or commands There is no ophthalmoplegia on my exam - Constitutional Vitals: Temp Pulse Resp BP Pulse Ox 97.3 F L 89 18 147/69 96 10/13/17 12:21 10/13/17 12:21 10/13/17 12:21 10/13/17 12:21 10/13/17 12:21 Results - Labs CBC & Chem 7: 10/13/17 05:19 10/13/17 05:19 Labs: Laboratory Last Values WBC 9.6 K/mm3 (4.5-11.0) 10/13/17 05:19 RBC 2.82 M/mm3 (3.65-5.03) L 10/13/17 05:19 Hgb 7.4 gm/dl (10.1-14.3) L 10/13/17 05:19 Hct 23.6 % (30.3-42.9) L 10/13/17 05:19 MCV 84 fl (79-97) 10/13/17 05:19 MCH 26 pg (28-32) L 10/13/17 05:19 MCHC 31 % (30-34) 10/13/17 05:19 RDW 21.4 % (13.2-15.2) H 10/13/17 05:19 Plt Count 281 K/mm3 (140-440) 10/13/17 05:19 Lymph % (Auto) 9.9 % (13.4-35.0) L 10/10/17 19:00 [place] % (Auto) 6.5 % (0.0-7.3) 10/10/17 19:00 Eos % (Auto) 0.3 % (0.0-4.3) 10/10/17 19:00 Baso % (Auto) 0.2 % (0.0-1.8) 10/10/17 19:00 Lymph # 1.1 K/mm3 (1.2-5.4) L 10/10/17 19:00 [place] # 0.7 K/mm3 (0.0-0.8) 10/10/17 19:00 Eos # 0.0 K/mm3 (0.0-0.4) 10/10/17 19:00 Baso # 0.0 K/mm3 (0.0-0.1) 10/10/17 19:00 Seg Neutrophils % 83.1 % (40.0-70.0) H 10/10/17 19:00 Seg Neutrophils # 8.8 K/mm3 (1.8-7.7) H 10/10/17 19:00 Sodium 138 mmol/L (137-145) 10/13/17 05:19 Potassium 3.5 mmol/L (3.6-5.0) L 10/13/17 05:19 Chloride 99.5 mmol/L (98-107) 10/13/17 05:19 Carbon Dioxide 24 mmol/L (22-30) 10/13/17 05:19 Anion Gap 18 mmol/L 10/13/17 05:19 BUN 18 mg/dL (7-17) H 10/13/17 05:19 Creatinine 2.3 mg/dL (0.7-1.2) H 10/13/17 05:19 Estimated GFR 21 ml/min 10/13/17 05:19 BUN/Creatinine Ratio 8 % 10/13/17 05:19 Glucose 125 mg/dL (65-100) H 10/13/17 05:19 POC Glucose 289 (70-105) H 10/12/17 21:50 Calcium 9.0 mg/dL (8.4-10.2) 10/13/17 05:19 Phosphorus 2.70 mg/dL (2.5-4.5) 10/12/17 10:35 Magnesium 2.10 mg/dL (1.7-2.3) 10/12/17 10:35 Total Bilirubin 0.50 mg/dL (0.1-1.2) 10/10/17 19:00 AST 27 units/L (5-40) 10/10/17 19:00 ALT 38 units/L (7-56) 10/10/17 19:00 Alkaline Phosphatase 211 units/L (35-129) H 10/10/17 19:00 Total Protein 6.3 g/dL (6.3-8.2) 10/10/17 19:00 Albumin 2.2 g/dL (3.9-5) L 10/10/17 19:00 Albumin/Globulin Ratio 0.5 % 10/10/17 19:00 Triglycerides 77 mg/dL (2-149) 10/11/17 04:54 Cholesterol 123 mg/dL (50-199) 10/11/17 04:54 LDL Cholesterol Direct 52 mg/dL (50-130) 10/11/17 04:54 HDL Cholesterol 56 mg/dL (40-59) 10/11/17 04:54 Cholesterol/HDL Ratio 2.19 % 10/11/17 04:54
--- NOTE | 2017-10-13 16:35 | Consultation ---
History of Present Illness - Reason for Consult Consult date: 10/13/17 Thrombosed Left Upper Extremity AV Graft Requesting physician: ELAINE VARGAS - History of Present Illness This patient is a 62-year-old -[place] female that was admitted via the emergency room on 10/10/2017 due to double vision. She had an MRI which showed multiple bilateral foci of subacute ischemia identified in the frontal lobes, right occipital lobe, and bilateral cerebellar hemispheres. Many of these appeared to be within the watershed regions by report, worrisome for global hypo -profusion or bilateral emboli. A neurology workup was initiated. The patient is known to our service. She was recently diagnosed with End stage renal disease. She is status post a recent permacath (which she currently uses for hemodialysis), and subsequent left upper extremity AV graft creation (left brachial artery to axillary vein bridge graft with 5 mm bovine graft on 09/12/[address] Tye Mantilla). At some point postoperatively the AV graft thrombosed. The patient was unaware. She does not know any potential precipitating causes such as hypotension or AV graft compression. Past History Past Medical History: atrial fib (previous EKG that suggests atrial fibrillation ), anemia, CAD (status post myocardial infarction), COPD, diabetes, dialysis, ESRD, hypertension, renal failure Past Surgical History: cholecystectomy, cataract removal, PTCA (with stent placement), Other (permacath insertion right internal jugular vein, left upper arm bovine AV graft insertion) Social history: smoking, alcohol abuse. denies: prescription drug abuse Family history: no significant family history Medications and Allergies Allergies Allergy/AdvReac Type Severity Reaction Status Date / Time lactose AdvReac Diarrhea Verified 09/08/17 11:59 Home Medications Medication Instructions Recorded Confirmed Last Taken Type AtorvaSTATin [Lipitor] 80 mg PO QHS 08/01/17 10/10/17 09/02/17 History Ezetimibe [Zetia] 10 mg PO QDAY 08/01/17 10/10/17 09/02/17 History Famotidine [Pepcid] 20 mg PO QDAY #30 tablet 09/10/17 10/10/17 Unknown Rx Amiodarone [Cordarone 200 MG TAB] 200 mg PO BID #60 tablet 09/17/17 10/10/17 Unknown Rx Ferrous Sulfate [Feosol 325 MG tab] 325 mg PO BID #60 tablet 09/17/17 10/10/17 Unknown Rx Insulin Detemir [Levemir] 8 units SUB-Q QHS #1 vial 09/17/17 10/10/17 Unknown Rx Metoprolol [Lopressor TAB] 25 mg PO TID #90 tablet 09/17/17 10/10/17 Unknown Rx Aspirin [Adult Low Dose Aspirin EC] 81 mg PO QDAY 10/10/17 10/10/17 Unknown History Active Meds: Active Medications Acetaminophen (Tylenol) 650 mg PO Q4H PRN PRN Reason: Pain, Mild (1-3) Amiodarone HCl (Cordarone) 200 mg PO BID [facility] Last Admin: 10/13/17 10:25 Dose: 200 mg Aspirin (Aspirin) 325 mg PO QDAY [facility] Last Admin: 10/13/17 10:24 Dose: 325 mg Atorvastatin Calcium (Lipitor) 80 mg PO QHS [facility] Last Admin: 10/12/17 21:54 Dose: 80 mg Bisacodyl (Dulcolax) 10 mg [place] QDAY PRN PRN Reason: Constipation Dextrose (D50w (25gm) Syringe) 50 ml IV PRN PRN PRN Reason: Hypoglycemia Ezetimibe (Zetia) 10 mg PO QDAY [facility] Last Admin: 10/13/17 10:24 Dose: 10 mg Enoxaparin Sodium (Lovenox) 30 mg SUB-Q Q24HR [facility] Last Admin: 10/13/17 10:25 Dose: 30 mg Epoetin Zoltan (Epogen) 20,000 unit SUB-Q ONCE NR Stop: 10/13/17 21:00 Famotidine (Pepcid) 20 mg PO QDAY [facility] Last Admin: 10/13/17 10:24 Dose: 20 mg Ferrous Sulfate (Feosol) 325 mg PO BID [facility] Last Admin: 10/13/17 10:24 Dose: 325 mg Hydralazine HCl (Apresoline) 5 mg IV Q6H PRN PRN Reason: Keep SBP between 160-185 mm Hg Insulin Aspart (Novolog) 0 units SUB-Q ACHS [facility] PRN Reason: Protocol Last Admin: 10/13/17 11:58 Dose: 1 units Insulin Detemir (Levemir) 8 units SUB-Q QHS [facility] Last Admin: 10/12/17 21:53 Dose: 8 units Ondansetron HCl (Zofran) 4 mg IV Q8H PRN PRN Reason: N/V unrelieved by Reglan Sodium Chloride (Sodium Chloride Flush Syringe 10 Ml) 10 ml IV PRN PRN PRN Reason: LINE FLUSH Review of Systems All systems: negative Exam - Constitutional Vitals: Temp Pulse Resp BP Pulse Ox 99.6 F 89 18 137/72 96 10/13/17 15:53 10/13/17 12:21 10/13/17 15:53 10/13/17 15:53 10/13/17 12:21 General appearance: Present: no acute distress - EENT ENT: hearing intact - Respiratory Respiratory effort: normal - Extremities Extremities: no ischemia, normal temperature (incisions appear to have healed), abnormal (left upper arm AV graft appears to be thrombosed I was unable to palpate a thrill) - Psychiatric Psychiatric: no appropriate mood/affect (flat affect), cooperative - Neurologic Neurologic: other (no focal deficits appreciated) Results - Labs CBC & Chem 7: 10/13/17 05:19 10/13/17 05:19 Labs: Abnormal lab results 10/12/17 10/12/17 10/12/17 Range/Units 12:28 17:33 21:50 RBC (3.65-5.03) M/mm3 Hgb (10.1-14.3) gm/dl Hct (30.3-42.9) % MCH (28-32) pg RDW (13.2-15.2) % Potassium (3.6-5.0) mmol/L BUN (7-17) mg/dL Creatinine (0.7-1.2) mg/dL Glucose (65-100) mg/dL POC Glucose 135 H 274 H 289 H (70-105) 10/13/17 10/13/17 Range/Units 05:19 05:19 RBC 2.82 L (3.65-5.03) M/mm3 Hgb 7.4 L (10.1-14.3) gm/dl Hct 23.6 L (30.3-42.9) % MCH 26 L (28-32) pg RDW 21.4 H (13.2-15.2) % Potassium 3.5 L (3.6-5.0) mmol/L BUN 18 H (7-17) mg/dL Creatinine 2.3 H (0.7-1.2) mg/dL Glucose 125 H (65-100) mg/dL POC Glucose (70-105) Assessment and Plan This patient was admitted with a double vision. An MRI was ordered and the report suggests multiple bilateral foci of subacute ischemia in the frontal lobes, right occipital lobe and bilateral cerebellar hemispheres. Many appear within the watershed regions and could represent global hypoperfusion or bilateral emboli. Neurology workup is in progress. An echocardiogram was ordered, and the report does not suggest SBE, or noted thrombus. Review of the ER note would suggest a previous EKG did show evidence of atrial fibrillation. Given CVA of questionable etiology, consider cardiology consult and possible need for anticoagulation. Carotid duplex shows less than 50% stenosis bilaterally. The patient's AV graft which was created in early September appears to thrombosed. It is unclear when this happened, nor the precipitating factors. This patient does have squamous cell carcinoma of the lung which could represent a hypercoagulable state. However given the recent stroke, would not recommend elective surgical intervention at present. She should continue to use her permacath for hemodialysis at present. - Patient Problems (1) AV graft thrombosis Current Visit: Yes Status: Acute (2) CVA (cerebral vascular accident) Current Visit: Yes Status: Acute (3) Lung cancer Current Visit: No Status: Acute (4) Paroxysmal atrial fibrillation Current Visit: No Status: Acute (5) End-stage renal disease on hemodialysis Current Visit: Yes Status: Acute (6) CAD (coronary artery disease) Current Visit: No Status: Chronic Qualifiers: Coronary Disease-Associated Artery/Lesion type: [place] artery [place] vs. transplanted heart: [place] heart (7) Tobacco use disorder Current Visit: No Status: Acute
[2017-10-13] MEDS: LEVEMIR SUB-Q SCH (21:22)
--- NOTE | 2017-10-14 06:54 | Progress Note ---
Assessment and Plan 1. ELKIN superimposed on CKD stage 4: Plan to do HD today. 2. Hypokalemia: K level is better. 3. Anemia: Continue Oral Iron. Epogen. 4. CVA: Presented with Intranuclear ophthalmoplegia. Symptoms have improved. 5. Diabetes type 2. 6. Lung cancer. 7. Hypertension. 8. Paroxysmal A.fib. Subjective Date of service: 10/14/17 Interval history: Patient is doing ok. Objective - Vital Signs Vital signs: Vital Signs - 12hr 10/13/17 10/13/17 10/13/17 20:00 20:01 23:56 Temperature 98.8 F 99.2 F Pulse Rate 75 78 Respiratory 22 21 Rate Blood Pressure 145/70 158/77 Blood Pressure [Left] O2 Sat by Pulse 96 Oximetry 10/14/17 04:30 Temperature 99.0 F Pulse Rate 94 H Respiratory 22 Rate Blood Pressure Blood Pressure 136/76 [Left] O2 Sat by Pulse 94 Oximetry - General Appearance General appearance: well-developed, appears stated age, other (no distress, right IJ tunnel catheter) EENT: ATNC, PERRL, hearing intact Neck: supple Respiratory: Present: Clear to Ascultation Cardiology: regular, S1S2, no murmurs Gastrointestinal: normoactive bowel sounds, no tenderness, no distended Integumentary: no rash, warm and dry Neurologic: no focal deficit, no asterixis Musculoskeletal: other (trace pedal edema) Psychiatric: mood/affect appropriate, cooperative - Lab 10/14/17 07:36 10/14/17 07:36 Most recent lab results Calcium 9.0 mg/dL (8.4-10.2) 10/13/17 05:19 Phosphorus 2.70 mg/dL (2.5-4.5) 10/12/17 10:35 Magnesium 2.10 mg/dL (1.7-2.3) 10/12/17 10:35
[2017-10-14] MEDS: NOVOLOG SUB-Q SCH ×4 (08:35→22:10)
[2017-10-14 08:49] LABS: Calcium 9.3 mg/dL (8.4-10.2); Chloride 99.8 mmol/L (98-107); Potassium 4.6 mmol/L (3.6-5.0)
[2017-10-14 09:13] LABS: Mean Corpuscular HGB Conc 30 % (30-34); Mean Corpuscular Volume 86 fl (79-97); Red Blood Count 3.12 M/mm3 (3.65-5.03); White Blood Count 13.4 K/mm3 (4.5-11.0)
[2017-10-14 09:14] LABS: Hemoglobin 7.9 gm/dl (10.1-14.3)
[2017-10-14 09:15] LABS: Hematocrit 26.9 % (30.3-42.9); Mean Corpuscular Hemoglobin 25 pg (28-32); Platelet Count 256 K/mm3 (140-440); Red Cell Distribution Width 21.5 % (13.2-15.2)
[2017-10-14] MEDS: ZETIA PO SCH (10:52)
[2017-10-14] MEDS: PEPCID PO SCH (10:52)
[2017-10-14] MEDS: FEOSOL PO SCH ×2 (10:52→22:03)
[2017-10-14] MEDS: CORDARONE PO SCH ×2 (10:53→22:03)
[2017-10-14] MEDS: LOVENOX SUB-Q SCH (10:53)
[2017-10-14] MEDS: ASPIRIN PO SCH (10:53)
--- NOTE | 2017-10-14 12:27 | Progress Note ---
Assessment and Plan Assessment and plan: he patient is a 62-year-old AAF with history significant for CKD with ELKIN on hemodialysis, Hypertension, Type 2 diabetes, CAD, Lung cancer and Anemia was brought to the emergency room from rehab for further evaluation of double vision. The daughter noticed that the left eye was not moving properly. In the ER she was diagnosed with Ophthalmoplegia. symptoms have now resolved MRI brain, image reviewed Multiple bilateral foci of subacute ischemia are identified in the frontal lobes, right occipital lobe and bilateral cerebellar hemispheres. Many of these foci appear to be within watershed regions. A global hypoperfusion episode could be considered. This could also represent multiple bilateral emboli. Please correlate with the patient's clinical history and presentation. Acute CVA with infarct continue cva protocol, allow permissive htn, optimize meds for secondary ppx -case dw neurology MRI confirms CVA, no blockages on MRA brain or carotid dopplers, echo shows EF 50%, no other significant findings -LDL at goal at 54 PAF, with hypercoaguable state, and bilateral cva -rate fairly controlled -start on eliquis, given extensive embolic cva ELKIN superimposed on CKD stage 4: vasomotor nephropathy case dw nephrology Monitor renal function and [employer] needs. HD as needed Diabetes type 2 continue insulins Hypertension Coronary artery disease Lung SCC with hypercoaguable state -eliquis as above AVG clot -cw Vascular surgery, no intervention planned on the AVG -she will continue to use her Permacath for HD -fully anticoagulated Hypoglycemia -glc was less than 50 today, I will cut levemir dose in half and cw ssi History Interval history: Ophthalmoplegia has resolved per patient and her family members. No focal weakness, no change in mental status Review of systems Constitutional: No fevers, no malaise, no joint pains CVS: No chest pain, no orthopnea, no dyspnea on exertion, no pedal edema GI: No abdominal pain, no diarrhea, no vomiting, no constipation Respiratory: No shortness of breath, no wheezing, no coughing Hospitalist Physical - Physical exam Narrative exam: General.: Appears well, no distress, nontoxic HEENT: Moist mucous membranes, extraocular muscles intact, no lymphadenopathy Neck: supple Cardiac: S1-S2 heard Lungs: clear to auscultation bilaterally Abdomen: soft , nontender, nondistended, bowel sounds positive Extremities: no edema clubbing or cyanosis Skin: no rash or lesions Neurologic: no gross focal deficits, parkinsonism noticed such as lip smacking Cognitive deficit, unable to comply with complex questions or commands There is no ophthalmoplegia on my exam - Constitutional Vitals: Temp Pulse Resp BP Pulse Ox 99.0 F 86 22 136/76 94 10/14/17 04:30 10/14/17 11:00 10/14/17 04:30 10/14/17 04:30 10/14/17 04:30 General appearance: Present: no acute distress Results - Labs CBC & Chem 7: 10/14/17 07:36 10/14/17 07:36 Labs: Laboratory Last Values WBC 13.4 K/mm3 (4.5-11.0) H 10/14/17 07:36 RBC 3.12 M/mm3 (3.65-5.03) L 10/14/17 07:36 Hgb 7.9 gm/dl (10.1-14.3) L 10/14/17 07:36 Hct 26.9 % (30.3-42.9) L 10/14/17 07:36 MCV 86 fl (79-97) 10/14/17 07:36 MCH 25 pg (28-32) L 10/14/17 07:36 MCHC 30 % (30-34) 10/14/17 07:36 RDW 21.5 % (13.2-15.2) H 10/14/17 07:36 Plt Count 256 K/mm3 (140-440) 10/14/17 07:36 Lymph % (Auto) 9.9 % (13.4-35.0) L 10/10/17 19:00 [place] % (Auto) 6.5 % (0.0-7.3) 10/10/17 19:00 Eos % (Auto) 0.3 % (0.0-4.3) 10/10/17 19:00 Baso % (Auto) 0.2 % (0.0-1.8) 10/10/17 19:00 Lymph # 1.1 K/mm3 (1.2-5.4) L 10/10/17 19:00 [place] # 0.7 K/mm3 (0.0-0.8) 10/10/17 19:00 Eos # 0.0 K/mm3 (0.0-0.4) 10/10/17 19:00 Baso # 0.0 K/mm3 (0.0-0.1) 10/10/17 19:00 Seg Neutrophils % 83.1 % (40.0-70.0) H 10/10/17 19:00 Seg Neutrophils # 8.8 K/mm3 (1.8-7.7) H 10/10/17 19:00 ESR > 140.0 mm/Hr (0-20) 10/13/17 13:29 Sodium 135 mmol/L (137-145) L 10/14/17 07:36 Potassium 4.6 mmol/L (3.6-5.0) D 10/14/17 07:36 Chloride 99.8 mmol/L (98-107) 10/14/17 07:36 Carbon Dioxide 19 mmol/L (22-30) L 10/14/17 07:36 Anion Gap 21 mmol/L 10/14/17 07:36 BUN 22 mg/dL (7-17) H 10/14/17 07:36 Creatinine 2.4 mg/dL (0.7-1.2) H 10/14/17 07:36 Estimated GFR 20 ml/min 10/14/17 07:36 BUN/Creatinine Ratio 9 % 10/14/17 07:36 Glucose 37 mg/dL (65-100) L* 10/14/17 07:36 POC Glucose 210 (70-105) H 10/14/17 12:14 Calcium 9.3 mg/dL (8.4-10.2) 10/14/17 07:36 Phosphorus 2.70 mg/dL (2.5-4.5) 10/12/17 10:35 Magnesium 2.10 mg/dL (1.7-2.3) 10/12/17 10:35 Total Bilirubin 0.50 mg/dL (0.1-1.2) 10/10/17 19:00 AST 27 units/L (5-40) 10/10/17 19:00 ALT 38 units/L (7-56) 10/10/17 19:00 Alkaline Phosphatase 211 units/L (35-129) H 10/10/17 19:00 Total Protein 6.3 g/dL (6.3-8.2) 10/10/17 19:00 Albumin 2.2 g/dL (3.9-5) L 10/10/17 19:00 Albumin/Globulin Ratio 0.5 % 10/10/17 19:00 Triglycerides 77 mg/dL (2-149) 10/11/17 04:54 Cholesterol 123 mg/dL (50-199) 10/11/17 04:54 LDL Cholesterol Direct 52 mg/dL (50-130) 10/11/17 04:54 HDL Cholesterol 56 mg/dL (40-59) 10/11/17 04:54 Cholesterol/HDL Ratio 2.19 % 10/11/17 04:54
--- NOTE | 2017-10-14 13:42 | Consultation ---
History of Present Illness Consult date: 10/14/17 Requesting physician: VISHAL DUGGAN Consult reason: other (PAF, embolic CVA) History of present illness: The pt is a 62-year-old female with a past medical history significant for transient atrial fibrillation, COPD, chronic respiratory failure on home O2, DM , HTN, ESRD on HD, anemia, CAD s/p PCI, lung cancer. She has been seen by our practice on prior hospitalizations. She presented with complaints of bilateral eye blurred vision for several hours prior to admission. Pt denies any chest pain, SOB, palpitations, n/v, diaphoresis, dizziness or syncope. On evaluation, she reports that her blurred vision has resolved. Brain MRI performed on 10/11 showed multiple bilateral foci of subacute ischemia in the frontal lobes, right occipital lobe and bilateral cerebellar hemispheres. Past History Past Medical History: atrial fib (transient), anemia, CAD (status post myocardial infarction), COPD, diabetes, dialysis, ESRD, hypertension, renal failure Past Surgical History: cholecystectomy, cataract removal, PTCA (with stent placement), Other (permacath insertion right internal jugular vein, left upper arm bovine AV graft insertion) Social history: smoking, alcohol abuse. denies: prescription drug abuse Family history: no significant family history Medications and Allergies Allergies Allergy/AdvReac Type Severity Reaction Status Date / Time lactose AdvReac Diarrhea Verified 09/08/17 11:59 Home Medications Medication Instructions Recorded Confirmed Last Taken Type AtorvaSTATin [Lipitor] 80 mg PO QHS 08/01/17 10/10/17 09/02/17 History Ezetimibe [Zetia] 10 mg PO QDAY 08/01/17 10/10/17 09/02/17 History Famotidine [Pepcid] 20 mg PO QDAY #30 tablet 09/10/17 10/10/17 Unknown Rx Amiodarone [Cordarone 200 MG TAB] 200 mg PO BID #60 tablet 09/17/17 10/10/17 Unknown Rx Ferrous Sulfate [Feosol 325 MG tab] 325 mg PO BID #60 tablet 09/17/17 10/10/17 Unknown Rx Metoprolol [Lopressor TAB] 25 mg PO TID #90 tablet 09/17/17 10/10/17 Unknown Rx Aspirin [Adult Low Dose Aspirin EC] 81 mg PO QDAY 10/10/17 10/10/17 Unknown History Apixaban [Eliquis] 5 mg PO Q12HR tablet 10/14/17 Unknown Rx Insulin Detemir [Levemir] 4 units SUB-Q QHS 30 Days units 10/14/17 Unknown Rx Active Meds: Active Medications Acetaminophen (Tylenol) 650 mg PO Q4H PRN PRN Reason: Pain, Mild (1-3) Amiodarone HCl (Cordarone) 200 mg PO BID [facility] Last Admin: 10/14/17 10:53 Dose: 200 mg Apixaban (Eliquis) 5 mg PO Q12HR [facility] PRN Reason: Protocol Aspirin (Aspirin) 325 mg PO QDAY [facility] Last Admin: 10/14/17 10:53 Dose: 325 mg Atorvastatin Calcium (Lipitor) 80 mg PO QHS [facility] Last Admin: 10/13/17 21:21 Dose: 80 mg Bisacodyl (Dulcolax) 10 mg [place] QDAY PRN PRN Reason: Constipation Dextrose (D50w (25gm) Syringe) 50 ml IV PRN PRN PRN Reason: Hypoglycemia Ezetimibe (Zetia) 10 mg PO QDAY [facility] Last Admin: 10/14/17 10:52 Dose: 10 mg Famotidine (Pepcid) 20 mg PO QDAY [facility] Last Admin: 10/14/17 10:52 Dose: 20 mg Ferrous Sulfate (Feosol) 325 mg PO BID [facility] Last Admin: 10/14/17 10:52 Dose: 325 mg Hydralazine HCl (Apresoline) 5 mg IV Q6H PRN PRN Reason: Keep SBP between 160-185 mm Hg Insulin Aspart (Novolog) 0 units SUB-Q [facility] PRN Reason: Protocol Last Admin: 10/14/17 13:00 Dose: 2 units Insulin Detemir (Levemir) 4 units SUB-Q QHS [facility] Ondansetron HCl (Zofran) 4 mg IV Q8H PRN PRN Reason: N/V unrelieved by Reglan Sodium Chloride (Sodium Chloride Flush Syringe 10 Ml) 10 ml IV PRN PRN PRN Reason: LINE FLUSH Review of Systems Constitutional: no weight loss, no weight gain, no fever, no chills, no sweats Eyes: bilateral: blurred vision Ears, nose, mouth and throat: no ear pain, no nose pain, no sinus pressure, no sinus pain Cardiovascular: no chest pain, no orthopnea, no palpitations, no rapid/ irregular heart beat, no edema, no syncope, no lightheadedness, no shortness of breath, no dyspnea on exertion, no leg edema Respiratory: no cough, no shortness of breath, no dyspnea on exertion, no congestion, no wheezing, no pain on inspiration Gastrointestinal: no abdominal pain, no nausea, no vomiting, no diarrhea, no constipation, no change in bowel habits Genitourinary Female: no pelvic pain, no flank pain, no dysuria, no urinary frequency, no urgency Musculoskeletal: no neck stiffness, no neck pain, no shooting arm pain, no arm numbness/tingling, no low back pain, no shooting leg pain, no leg numbness/ tingling, no redness of joints Integumentary: no rash, no pruritis, no redness, no sores, no wounds Neurological: no head injury, no paralysis, no parathesias, no numbness, no tingling, no seizures Psychiatric: no anxiety Endocrine: no cold intolerance, no heat intolerance Hematologic/Lymphatic: no easy bruising, no easy bleeding, no lymphadenopathy Allergic/Immunologic: no urticaria, no wheezing, no persistent infections Physical Examination Vital Signs Pulse Resp Pulse Ox 70 20 68 L 10/10/17 17:34 10/10/17 17:34 10/10/17 17:34 General appearance: no acute distress HEENT: Positive: PERRL, Normocephaly, Mucus Membranes Moist Neck: Positive: neck supple, trachea midline Cardiac: Positive: Reg Rate and Rhythm, S1/S2, Systolic Murmur Lungs: Positive: clear to auscultation Neuro: Positive: Grossly Intact Abdomen: Positive: Unremarkable, Soft, Active Bowel Sounds. Negative: Tender Skin: Positive: Clear. Negative: Rash, Wound Musculoskeletal: No Fluid Collection, No Pain, Normal Range of Motion Extremities: Absent: edema Results 10/14/17 07:36 10/14/17 07:36 CBC 10/14/17 Range/Units 07:36 WBC 13.4 H (4.5-11.0) K/mm3 RBC 3.12 L (3.65-5.03) M/mm3 Hgb 7.9 L (10.1-14.3) gm/dl Hct 26.9 L (30.3-42.9) % Plt Count 256 (140-440) K/mm3 Comprehensive Metabolic Panel 10/14/17 Range/Units 07:36 Sodium 135 L (137-145) mmol/L Potassium 4.6 D (3.6-5.0) mmol/L Chloride 99.8 (98-107) mmol/L Carbon Dioxide 19 L (22-30) mmol/L BUN 22 H (7-17) mg/dL Creatinine 2.4 H (0.7-1.2) mg/dL Glucose 37 L* (65-100) mg/dL Calcium 9.3 (8.4-10.2) mg/dL - Imaging and Cardiology Echo: report reviewed (10/10/2017: RV moderately dilated, RA moderately dilated, moderate to severe TR, severe pulm HTN, RVSP 83mmHg, EF 45-50%, LA moderately dilated, mild MR, mild to mod AR, left pleural effusion) EKG: report reviewed, image reviewed EKG interpretations - Telemetry EKG Rhythm: Sinus Rhythm - EKG Sinus rhythms and dysrhythmias: sinus rhythm Assessment and Plan Telemetry reviewed - pt in SR with no evidence of cardiac arrhythmias noted since admission. Echo reviewed with no evidence of intracardiac thrombus. Pt has h/o transient atrial fibrillation which was documented on 09/07/2017. Systemic anticoagulation in regards to atrial fibrillation was not initiated at that time given brief duration (<24Hr) of documented AFib and anemia. Considering significant evidence of stroke on MRI presumed to be embolic, and with a history of transient atrial fibrillation, the patient may benefit from buttermaker continuous churn systemic anticoagulation. However, neurology opinion regarding this will be helpful. The issue of anemia of uncertain etiology is also of concern. Currently stable cardiac status. The patient has been seen in conjunction with Dr. Goode who agrees with the assessment and plan of care. - Patient Problems (1) Acute CVA (cerebrovascular accident) Current Visit: Yes Status: Acute (2) Transient atrial fibrillation Current Visit: No Status: Resolved (3) End-stage renal disease on hemodialysis Current Visit: Yes Status: Chronic (4) CAD (coronary artery disease) Current Visit: Yes Status: Chronic Qualifiers: Coronary Disease-Associated Artery/Lesion type: [place] artery [place] vs. transplanted heart: [place] heart (5) Stented coronary artery Current Visit: Yes Status: Chronic (6) Chronic respiratory failure Current Visit: Yes Status: Chronic (7) Diabetes mellitus Current Visit: Yes Status: Chronic Qualifiers: Diabetes mellitus type: type 2 Diabetes mellitus complication status: with other specified complication (8) Hypoglycemia Current Visit: Yes Status: Acute (9) Anemia Current Visit: Yes Status: Chronic (10) Tricuspid regurgitation Current Visit: Yes Status: Chronic (11) Pulmonary HTN Current Visit: Yes Status: Chronic
[2017-10-14] MEDS ORDERED: NACL 0.9% 100 ML IV PRN ×2 (14:46→18:32)
--- NOTE | 2017-10-14 15:09 | Discharge Summary ---
Providers - Providers Date of Admission: 10/10/17 22:12 Attending physician: VISHAL DUGGAN MD 10/10/17 Consult to Physician [CONS] Routine Consulting Provider: ANN MOTA Reason For Exam: blurry vision Place consult to:: neuro Notified:: n Comment:: added to list Consult to Physician [CONS] Routine Consulting Provider: ELAINE VARGAS Reason For Exam: hd Place consult to:: davidson Notified:: eyal 10/10/17 23:22 Occupational Therapy Evaluate and Treat [CONS] Routine Comment: Reason For Exam: Neuro deficits Physical Therapy Evaluation and Treat [CONS] Routine Comment: Reason For Exam: Neuro deficits 10/14/17 12:25 Consult to Physician [CONS] Routine Consulting Provider: FRANK GUIDO Reason For Exam: PAF, embolic cva Place consult to:: Dr. Sesay Notified:: Tatyana STRATTON Was contact made?: Yes If yes, spoke with:: Leidy Lopez Time called:: 13:27 Primary care physician: NILA RODRIGUEZ Hospitalization Condition: Stable Hospital course: he patient is a 62-year-old AAF with history significant for CKD with ELKIN on hemodialysis, Hypertension, Type 2 diabetes, CAD, Lung cancer and Anemia was brought to the emergency room from rehab for further evaluation of double vision. The daughter noticed that the left eye was not moving properly. In the ER she was diagnosed with Ophthalmoplegia. symptoms have now resolved MRI brain, image reviewed Multiple bilateral foci of subacute ischemia are identified in the frontal lobes, right occipital lobe and bilateral cerebellar hemispheres. Many of these foci appear to be within watershed regions. A global hypoperfusion episode could be considered. This could also represent multiple bilateral emboli. Please correlate with the patient's clinical history and presentation. Acute CVA continue cva protocol, allow permissive htn, optimize meds for secondary ppx -case dw neurology MRI confirms CVA, no blockages on MRA brain or carotid dopplers, echo shows EF 50%, no other significant findings -LDL at goal at 54 PAF, with hypercoaguable state -rate fairly controlled -start on eliquis, given extensive embolic cva ELKIN superimposed on CKD stage 4: vasomotor nephropathy Creatinine is 1.7. 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 Diabetes type 2 continue insulins Hypertension Coronary artery disease Lung SCC with hypercoaguable state -eliquis as above Disposition: DC-01 TO HOME OR SELFCARE Time spent for discharge: 33 minutes Core Measure Documentation - Palliative Care Palliative Care/ Comfort Measures: Not Applicable - Core Measures Any of the following diagnoses?: none Exam - Physical Exam Narrative exam: General.: Appears well, no distress, nontoxic HEENT: Moist mucous membranes, extraocular muscles intact, no lymphadenopathy Neck: supple Cardiac: S1-S2 heard Lungs: clear to auscultation bilaterally Abdomen: soft , nontender, nondistended, bowel sounds positive Extremities: no edema clubbing or cyanosis Skin: no rash or lesions Neurologic: no gross focal deficits, parkinsonism noticed such as lip smacking Cognitive deficit, P a sister ago with complex questions or commands There is no ophthalmoplegia on my exam - Constitutional Vitals: Temp Pulse Resp BP Pulse Ox 99.0 F 86 22 136/76 94 10/14/17 04:30 10/14/17 11:00 10/14/17 04:30 10/14/17 04:30 10/14/17 04:30 Plan Follow up with: NILA RODRIGUEZ MD [Primary Care Provider] - 3-5 Days Prescriptions: Insulin Detemir [Levemir] 4 units SUB-Q QHS 30 Days units
[2017-10-14] MEDS ORDERED: NACL 0.9 (PRIMING MACHINE ONLY DIALYSIS) MC ONE ×3 (15:32→18:32)
[2017-10-14] MEDS ORDERED: HEPARIN 10,000 UNITS/10 ML ONE (18:31)
[2017-10-14] MEDS ORDERED: HEPARIN ONE (18:32)
[2017-10-14] MEDS: LEVEMIR SUB-Q SCH (21:45)
[2017-10-14] MEDS: ELIQUIS PO SCH (22:02)
--- NOTE | 2017-10-15 07:16 | Progress Note ---
Assessment and Plan 1. ESRD: Patient was last dialyzed yesterday. Continue HD TTS schedule. 2. Anemia: Continue Oral Iron. Epogen on dialysis days. 3. CVA: Presented with ophthalmoplegia. Symptoms have improved. 4. Diabetes type 2. 5. Lung cancer. 6. Hypertension. 7. Paroxysmal A.fib. On Coumadin. Subjective Date of service: 10/15/17 Interval history: Patient is doing ok. Objective - Vital Signs Vital signs: Vital Signs - 12hr 10/14/17 10/14/17 10/15/17 20:24 23:00 00:26 Temperature 97.9 F 98.3 F Pulse Rate 109 H 86 Respiratory 18 18 Rate Blood Pressure 144/72 105/50 Blood Pressure [Left] O2 Sat by Pulse 71 L Oximetry 10/15/17 10/15/17 01:38 05:41 Temperature 98.3 F 98.7 F Pulse Rate 86 Respiratory 18 20 Rate Blood Pressure 131/56 Blood Pressure 105/50 [Left] O2 Sat by Pulse 94 Oximetry - General Appearance General appearance: well-developed, appears stated age, other (no distress, right IJ tunnel catheter) EENT: ATNC, PERRL, hearing intact Neck: supple Respiratory: Present: Clear to Ascultation Cardiology: regular, S1S2, no murmurs Gastrointestinal: normoactive bowel sounds, no tenderness, no distended Integumentary: no rash, warm and dry Neurologic: no focal deficit, no asterixis Musculoskeletal: other (no edema) Psychiatric: mood/affect appropriate, cooperative - Lab 10/14/17 07:36 10/14/17 07:36 Most recent lab results Calcium 9.3 mg/dL (8.4-10.2) 10/14/17 07:36 Phosphorus 2.70 mg/dL (2.5-4.5) 10/12/17 10:35 Magnesium 2.10 mg/dL (1.7-2.3) 10/12/17 10:35
[2017-10-15] MEDS: NOVOLOG SUB-Q SCH ×4 (09:22→22:17)
[2017-10-15] MEDS: FEOSOL PO SCH ×2 (09:23→21:59)
[2017-10-15] MEDS: ASPIRIN PO SCH (09:23)
[2017-10-15] MEDS: ZETIA PO SCH (09:23)
[2017-10-15] MEDS: CORDARONE PO SCH ×2 (09:23→21:59)
[2017-10-15] MEDS: PEPCID PO SCH (09:23)
[2017-10-15] MEDS: ELIQUIS PO SCH (09:23)
--- NOTE | 2017-10-15 12:02 | Progress Note ---
Assessment and Plan Given documented paroxysmal atrial fibrillation on telemetry overnight, systemic anticoagulation in regards to atrial fibrillation is indicated. However , would recommend coumadin instead of NOAC in setting of ESRD requiring HD. Also , would recommend neurology to specify appropriate time to initiate systemic anticoagulation in setting of recent CVA. Additionally, the issue of anemia is a concern. Currently stable cardiac status. Cont amiodarone. The patient has been seen in conjunction with Dr. Goode who agrees with the assessment and plan of care. - Patient Problems (1) Acute CVA (cerebrovascular accident) Current Visit: Yes Status: Acute (2) Paroxysmal atrial fibrillation Current Visit: Yes Status: Chronic (3) End-stage renal disease on hemodialysis Current Visit: Yes Status: Chronic (4) CAD (coronary artery disease) Current Visit: Yes Status: Chronic Qualifiers: Coronary Disease-Associated Artery/Lesion type: [place] artery [place] vs. transplanted heart: [place] heart (5) Stented coronary artery Current Visit: Yes Status: Chronic (6) Chronic respiratory failure Current Visit: Yes Status: Chronic (7) Diabetes mellitus Current Visit: Yes Status: Chronic Qualifiers: Diabetes mellitus type: type 2 Diabetes mellitus complication status: with other specified complication (8) Hypoglycemia Current Visit: Yes Status: Acute (9) Anemia Current Visit: Yes Status: Chronic (10) Tricuspid regurgitation Current Visit: Yes Status: Chronic (11) Pulmonary HTN Current Visit: Yes Status: Chronic Subjective Date of service: 10/15/17 Principal diagnosis: PAF Interval history: Pt resting comfortably in bed, no current complaints. Pt noted to have paroxysmal atrial fibrillation with CVR overnight on telemetry. Currently in SR. Objective Last Vital Signs Temp 98.7 F 10/15/17 05:41 Pulse 82 10/15/17 10:38 Resp 20 10/15/17 05:41 BP 131/56 10/15/17 05:41 Pulse Ox 94 10/15/17 01:38 - Physical Examination HEENT: Positive: PERRL, Normocephaly, Mucus Membranes Moist Neck: Positive: neck supple, trachea midline Cardiac: Positive: Reg Rate and Rhythm, S1/S2 Neuro: Positive: Grossly Intact Abdomen: Positive: Unremarkable, Soft, Active Bowel Sounds. Negative: Tender Skin: Positive: Clear. Negative: Rash, Wound Musculoskeletal: No Fluid Collection, No Pain, Normal Range of Motion Extremities: Absent: edema - Imaging and Cardiology EKG: report reviewed, image reviewed Echo: report reviewed (10/10/2017: RV moderately dilated, RA moderately dilated, moderate to severe TR, severe pulm HTN, RVSP 83mmHg, EF 45-50%, LA moderately dilated, mild MR, mild to mod AR, left pleural effusion) - EKG Sinus rhythms and dysrhythmias: sinus rhythm
--- NOTE | 2017-10-15 12:32 | Progress Note ---
Assessment and Plan Assessment and plan: Patient is a 62-year-old woman with history significant for ESRD on hemodialysis , Hypertension, Type 2 diabetes, CAD, Lung cancer and Anemia was brought to the emergency room from rehab for further evaluation of double vision. The daughter noticed that the left eye was not moving properly. In the ER she was diagnosed with Ophthalmoplegia. symptoms have now resolved MRI brain, image reviewed Multiple bilateral foci of subacute ischemia are identified in the frontal lobes, right occipital lobe and bilateral cerebellar hemispheres. Many of these foci appear to be within watershed regions. A global hypoperfusion episode could be considered. This could also represent multiple bilateral emboli. Please correlate with the patient's clinical history and presentation. Acute ichemic stoke continue cva protocol, allow permissive htn, optimize meds for secondary ppx -case dw neurology MRI confirms CVA, no blockages on MRA brain or carotid dopplers, echo shows EF 50%, no other significant findings -LDL at goal at 54 PAF, with hypercoaguable state -rate fairly controlled -start on eliquis, given extensive embolic cva ELKIN superimposed on CKD stage 4: vasomotor nephropathy Creatinine is 1.7. 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 HD as needed Diabetes type 2 continue insulins Hypertension Coronary artery disease Lung SCC with hypercoaguable state 10/15/17: new issue is p. afib put up on telemetry. I spoke with Neurologist, urbano Wei to start Warfarin, Also, spoke with Optimization Analyst, Dr. Goode. History Interval history: Follow up on CVA. No cp, sob, fevers or chills or headaches. Daughter at bedside who request patient go back to [facility]/[place] but they need another pre- certification from patient's insurance. Hospitalist Physical - Physical exam Narrative exam: GEN: wdwn nad a/o x 3 HEENT: perrl, eomi, op clear CVS/HEART: rrr, normal s1s2 LUngs/REsp: ctab, good chest expansion bilateral, good air entry, good breath sounds GI/Abd: soft, ntnd, gbs, no rebound or guarding : no cva tenderness, no paraspinal tenderness MSK: FROM x 3 Ext/Interg: no c/c/e, no new rash Neuro: cn 2-12 grossly intact, + focal deficit Psych: calm - Constitutional Vitals: Temp Pulse Resp BP Pulse Ox 98.7 F 82 20 131/56 94 10/15/17 05:41 10/15/17 10:38 10/15/17 05:41 10/15/17 05:41 10/15/17 01:38 General appearance: Present: no acute distress Results - Labs CBC & Chem 7: 10/14/17 07:36 10/14/17 07:36 Labs: Laboratory Last Values WBC 13.4 K/mm3 (4.5-11.0) H 10/14/17 07:36 RBC 3.12 M/mm3 (3.65-5.03) L 10/14/17 07:36 Hgb 7.9 gm/dl (10.1-14.3) L 10/14/17 07:36 Hct 26.9 % (30.3-42.9) L 10/14/17 07:36 MCV 86 fl (79-97) 10/14/17 07:36 MCH 25 pg (28-32) L 10/14/17 07:36 MCHC 30 % (30-34) 10/14/17 07:36 RDW 21.5 % (13.2-15.2) H 10/14/17 07:36 Plt Count 256 K/mm3 (140-440) 10/14/17 07:36 Lymph % (Auto) 9.9 % (13.4-35.0) L 10/10/17 19:00 [place] % (Auto) 6.5 % (0.0-7.3) 10/10/17 19:00 Eos % (Auto) 0.3 % (0.0-4.3) 10/10/17 19:00 Baso % (Auto) 0.2 % (0.0-1.8) 10/10/17 19:00 Lymph # 1.1 K/mm3 (1.2-5.4) L 10/10/17 19:00 [place] # 0.7 K/mm3 (0.0-0.8) 10/10/17 19:00 Eos # 0.0 K/mm3 (0.0-0.4) 10/10/17 19:00 Baso # 0.0 K/mm3 (0.0-0.1) 10/10/17 19:00 Seg Neutrophils % 83.1 % (40.0-70.0) H 10/10/17 19:00 Seg Neutrophils # 8.8 K/mm3 (1.8-7.7) H 10/10/17 19:00 ESR > 140.0 mm/Hr (0-20) 10/13/17 13:29 Sodium 135 mmol/L (137-145) L 10/14/17 07:36 Potassium 4.6 mmol/L (3.6-5.0) D 10/14/17 07:36 Chloride 99.8 mmol/L (98-107) 10/14/17 07:36 Carbon Dioxide 19 mmol/L (22-30) L 10/14/17 07:36 Anion Gap 21 mmol/L 10/14/17 07:36 BUN 22 mg/dL (7-17) H 10/14/17 07:36 Creatinine 2.4 mg/dL (0.7-1.2) H 10/14/17 07:36 Estimated GFR 20 ml/min 10/14/17 07:36 BUN/Creatinine Ratio 9 % 10/14/17 07:36 Glucose 37 mg/dL (65-100) L* 10/14/17 07:36 POC Glucose 136 (70-105) H 10/15/17 08:28 Calcium 9.3 mg/dL (8.4-10.2) 10/14/17 07:36 Phosphorus 2.70 mg/dL (2.5-4.5) 10/12/17 10:35 Magnesium 2.10 mg/dL (1.7-2.3) 10/12/17 10:35 Total Bilirubin 0.50 mg/dL (0.1-1.2) 10/10/17 19:00 AST 27 units/L (5-40) 10/10/17 19:00 ALT 38 units/L (7-56) 10/10/17 19:00 Alkaline Phosphatase 211 units/L (35-129) H 10/10/17 19:00 Total Protein 6.3 g/dL (6.3-8.2) 10/10/17 19:00 Albumin 2.2 g/dL (3.9-5) L 10/10/17 19:00 Albumin/Globulin Ratio 0.5 % 10/10/17 19:00 Triglycerides 77 mg/dL (2-149) 10/11/17 04:54 Cholesterol 123 mg/dL (50-199) 10/11/17 04:54 LDL Cholesterol Direct 52 mg/dL (50-130) 10/11/17 04:54 HDL Cholesterol 56 mg/dL (40-59) 10/11/17 04:54 Cholesterol/HDL Ratio 2.19 % 10/11/17 04:54
--- NOTE | 2017-10-15 14:45 | Cat Scan Report ---
CT HEAD WITHOUT CONTRAST: HISTORY: CVA. TECHNIQUE: Sequential CT images without contrast. FINDINGS: Images obtained show bilateral prominence of the sulci and ventricles. There are no abnormal intra- or extra-axial blood or fluid collections. There are no focal masses or evidence of mass effect. The pringle white matter differentiation appears within normal limits. Regions of periventricular decreased attenuation are consistent with microangiopathic ischemic disease. The posterior fossa structures including the fourth ventricle, cerebellum, and brainstem appear normal. IMPRESSION: Evidence of atrophy and microangiopathic ischemic disease. No acute intracranial process noted. No significant change since 10/10/17.
[2017-10-15 18:35] LABS: INR 1.18 (0.87-1.13)
[2017-10-15] MEDS: COUMADIN PO SCH (22:09)
[2017-10-15] MEDS: LEVEMIR SUB-Q SCH (23:11)
[2017-10-16] MEDS: NOVOLOG SUB-Q SCH ×4 (07:28→22:55)
[2017-10-16 07:55] LABS: INR 1.22 (0.87-1.13)
--- NOTE | 2017-10-16 08:04 | Vascular Lab Report ---
CAROTID DUPLEX STUDY: RIGHT PSVEDV CCA PROX:4711 CCA DIST:5015 ICA PROX:4212 ICA MID:6918 ICA DIST:8425 ECA: 65 VERT: 62 12 LEFT PSVEDV CCA PROX:5415 CCA DIST:4714 ICA PROX:7121 ICA MID:8625 ICA DIST:8824 ECA: 71 VERT: 63 16 REASON FOR EXAM: Stroke. COMMENTS ON THE RIGHT: Doppler frequency analysis is consistent with 16 to 49 percent diameter reduction of the internal carotid artery. Minimal amount of plaque is seen. The common carotid artery is patent. The external carotid artery is patent. The vertebral artery has antegrade flow. COMMENTS ON THE LEFT: Doppler frequency analysis is consistent with 16 to 49 percent diameter reduction of the internal carotid artery. Minimal amount of plaque is seen. The common carotid artery is patent. The external carotid artery is patent. The vertebral artery has antegrade flow. IMPRESSION: Less than 50% diameter reduction in the internal carotid arteries bilaterally. Consider repeat carotid artery duplex in 12 months.
--- NOTE | 2017-10-16 09:42 | Progress Note ---
Assessment and Plan 1. ESRD: Continue HD, TTS schedule. 2. Anemia: Continue Oral Iron. Epogen on dialysis days. 3. CVA: Presented with ophthalmoplegia. Symptoms have improved. 4. Diabetes type 2. 5. Lung cancer. 6. Hypertension. 7. Paroxysmal A.fib. On Coumadin. Subjective Date of service: 10/16/17 Principal diagnosis: PAF Interval history: Patient is doing ok. No new complaint. Objective - Vital Signs Vital signs: Vital Signs - 12hr 10/15/17 10/16/17 22:00 06:58 Temperature 99.6 F Pulse Rate 84 Respiratory 20 18 Rate Blood Pressure 145/71 O2 Sat by Pulse 94 95 Oximetry - General Appearance General appearance: well-developed, appears stated age, other (no distress, right IJ tunnel catheter) EENT: ATNC, PERRL, hearing intact Neck: supple Respiratory: Present: Clear to Ascultation Cardiology: regular, S1S2, no murmurs Gastrointestinal: normoactive bowel sounds, no tenderness, no distended Integumentary: no rash, warm and dry Neurologic: no focal deficit, no asterixis Musculoskeletal: other (no edema) Psychiatric: mood/affect appropriate, cooperative - Lab 10/14/17 07:36 10/14/17 07:36 Most recent lab results Calcium 9.3 mg/dL (8.4-10.2) 10/14/17 07:36 Phosphorus 2.70 mg/dL (2.5-4.5) 10/12/17 10:35 Magnesium 2.10 mg/dL (1.7-2.3) 10/12/17 10:35
--- NOTE | 2017-10-16 11:25 | Progress Note ---
Assessment and Plan Currently stable cardiac status. Resume telemetry. Coumadin initiated per primary. The patient has been seen in conjunction with Dr. Goode who agrees with the assessment and plan of care. - Patient Problems (1) Paroxysmal atrial fibrillation Current Visit: Yes Status: Chronic (2) Acute CVA (cerebrovascular accident) Current Visit: Yes Status: Acute (3) End-stage renal disease on hemodialysis Current Visit: Yes Status: Chronic (4) CAD (coronary artery disease) Current Visit: Yes Status: Chronic Qualifiers: Coronary Disease-Associated Artery/Lesion type: [place] artery [place] vs. transplanted heart: [place] heart (5) Stented coronary artery Current Visit: Yes Status: Chronic (6) Chronic respiratory failure Current Visit: Yes Status: Chronic (7) Diabetes mellitus Current Visit: Yes Status: Chronic Qualifiers: Diabetes mellitus type: type 2 Diabetes mellitus complication status: with other specified complication (8) Hypoglycemia Current Visit: Yes Status: Acute (9) Anemia Current Visit: Yes Status: Chronic (10) Tricuspid regurgitation Current Visit: Yes Status: Chronic (11) Pulmonary HTN Current Visit: Yes Status: Chronic Subjective Date of service: 10/16/17 Principal diagnosis: PAF Interval history: Pt resting comfortably in bed, no current complaints. Remote telemetry was discontinued upon pt transfer. Will resume. Objective Last Vital Signs Temp 99.6 F 10/16/17 06:58 Pulse 84 10/16/17 06:58 Resp 18 10/16/17 06:58 BP 145/71 10/16/17 06:58 Pulse Ox 95 10/16/17 06:58 - Physical Examination HEENT: Positive: PERRL, Normocephaly, Mucus Membranes Moist Neck: Positive: neck supple, trachea midline Cardiac: Positive: Reg Rate and Rhythm, S1/S2 Lungs: Positive: clear to auscultation Neuro: Positive: Grossly Intact Abdomen: Positive: Unremarkable, Soft, Active Bowel Sounds. Negative: Tender Skin: Positive: Clear. Negative: Rash, Wound Musculoskeletal: No Fluid Collection, No Pain, Normal Range of Motion Extremities: Absent: edema - Labs and Meds Coagulation 10/15/17 10/16/17 Range/Units 17:59 07:08 PT 15.6 H 16.1 H (12.2-14.9) Sec. INR 1.18 H 1.22 H (0.87-1.13) - Imaging and Cardiology EKG: report reviewed, image reviewed Echo: report reviewed (10/10/2017: RV moderately dilated, RA moderately dilated, moderate to severe TR, severe pulm HTN, RVSP 83mmHg, EF 45-50%, LA moderately dilated, mild MR, mild to mod AR, left pleural effusion) - EKG Sinus rhythms and dysrhythmias: sinus rhythm
[2017-10-16] MEDS: ASPIRIN PO SCH ×2 (11:27→18:40)
[2017-10-16] MEDS: LOPRESSOR PO SCH ×2 (11:27→22:33)
[2017-10-16] MEDS: CORDARONE PO SCH ×2 (11:27→22:32)
[2017-10-16] MEDS: PEPCID PO SCH ×2 (11:27→18:39)
[2017-10-16] MEDS: FEOSOL PO SCH ×3 (11:27→22:31)
[2017-10-16] MEDS: ZETIA PO SCH (11:28)
[2017-10-16] MEDS ORDERED: NACL 0.9 (PRIMING MACHINE ONLY DIALYSIS) MC ONE (13:21)
--- NOTE | 2017-10-16 14:32 | Progress Note ---
Assessment and Plan Assessment and plan: Patient is a 62-year-old woman with history significant for ESRD on hemodialysis , Hypertension, Type 2 diabetes, CAD, Lung cancer and Anemia was brought to the emergency room from rehab for further evaluation of double vision. The daughter noticed that the left eye was not moving properly. In the ER she was diagnosed with Ophthalmoplegia. symptoms have now resolved MRI brain, image reviewed Multiple bilateral foci of subacute ischemia are identified in the frontal lobes, right occipital lobe and bilateral cerebellar hemispheres. Many of these foci appear to be within watershed regions. A global hypoperfusion episode could be considered. This could also represent multiple bilateral emboli. Please correlate with the patient's clinical history and presentation. Acute ichemic stoke continue cva protocol, allow permissive htn, optimize meds for secondary ppx -case dw neurology MRI confirms CVA, no blockages on MRA brain or carotid dopplers, echo shows EF 50%, no other significant findings -LDL at goal at 54 PAF, with hypercoaguable state -rate fairly controlled -start on eliquis, given extensive embolic cva ELKIN superimposed on CKD stage 4: vasomotor nephropathy Creatinine is 1.7. 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 afib on telemetry. I spoke with Neurologist, Dr. Barnett , urbano to start Warfarin, Also, spoke with Wheel Polisher, Dr. Goode. No heparin iv bridge because risk of bleeding, worsening anemia, hemorrhage conversion, etc... per Consultants. Baseline line CT head done, no acute findings. 10/16/17: Awaiting INR to be therapeutic 2-3, managing anticoagulation closely, triate Coumadin dose as needed. History Interval history: Follow up on CVA. No cp, sob, fevers or chills or headaches. Daughter at bedside who request patient go back to [facility]/[place] but they need another pre- certification from patient's insurance. Hospitalist Physical - Physical exam Narrative exam: GEN: wdwn nad a/o x 3 HEENT: perrl, eomi, op clear CVS/HEART: rrr, normal s1s2 LUngs/REsp: ctab, good chest expansion bilateral, good air entry, good breath sounds GI/Abd: soft, ntnd, gbs, no rebound or guarding : no cva tenderness, no paraspinal tenderness MSK: FROM x 3 Ext/Interg: no c/c/e, no new rash Neuro: cn 2-12 grossly intact, + focal deficit Psych: calm - Constitutional Vitals: Temp Pulse Resp BP Pulse Ox 99.6 F 84 18 145/71 94 10/16/17 06:58 10/16/17 06:58 10/16/17 06:58 10/16/17 06:58 10/16/17 10:00 General appearance: Present: no acute distress Results - Labs CBC & Chem 7: 10/14/17 07:36 10/14/17 07:36 Labs: Laboratory Last Values WBC 13.4 K/mm3 (4.5-11.0) H 10/14/17 07:36 RBC 3.12 M/mm3 (3.65-5.03) L 10/14/17 07:36 Hgb 7.9 gm/dl (10.1-14.3) L 10/14/17 07:36 Hct 26.9 % (30.3-42.9) L 10/14/17 07:36 MCV 86 fl (79-97) 10/14/17 07:36 MCH 25 pg (28-32) L 10/14/17 07:36 MCHC 30 % (30-34) 10/14/17 07:36 RDW 21.5 % (13.2-15.2) H 10/14/17 07:36 Plt Count 256 K/mm3 (140-440) 10/14/17 07:36 Lymph % (Auto) 9.9 % (13.4-35.0) L 10/10/17 19:00 [place] % (Auto) 6.5 % (0.0-7.3) 10/10/17 19:00 Eos % (Auto) 0.3 % (0.0-4.3) 10/10/17 19:00 Baso % (Auto) 0.2 % (0.0-1.8) 10/10/17 19:00 Lymph # 1.1 K/mm3 (1.2-5.4) L 10/10/17 19:00 [place] # 0.7 K/mm3 (0.0-0.8) 10/10/17 19:00 Eos # 0.0 K/mm3 (0.0-0.4) 10/10/17 19:00 Baso # 0.0 K/mm3 (0.0-0.1) 10/10/17 19:00 Seg Neutrophils % 83.1 % (40.0-70.0) H 10/10/17 19:00 Seg Neutrophils # 8.8 K/mm3 (1.8-7.7) H 10/10/17 19:00 ESR > 140.0 mm/Hr (0-20) 10/13/17 13:29 PT 16.1 Sec. (12.2-14.9) H 10/16/17 07:08 INR 1.22 (0.87-1.13) H 10/16/17 07:08 Sodium 135 mmol/L (137-145) L 10/14/17 07:36 Potassium 4.6 mmol/L (3.6-5.0) D 10/14/17 07:36 Chloride 99.8 mmol/L (98-107) 10/14/17 07:36 Carbon Dioxide 19 mmol/L (22-30) L 10/14/17 07:36 Anion Gap 21 mmol/L 10/14/17 07:36 BUN 22 mg/dL (7-17) H 10/14/17 07:36 Creatinine 2.4 mg/dL (0.7-1.2) H 10/14/17 07:36 Estimated GFR 20 ml/min 10/14/17 07:36 BUN/Creatinine Ratio 9 % 10/14/17 07:36 Glucose 37 mg/dL (65-100) L* 10/14/17 07:36 POC Glucose 178 (70-105) H 10/16/17 12:00 Calcium 9.3 mg/dL (8.4-10.2) 10/14/17 07:36 Phosphorus 2.70 mg/dL (2.5-4.5) 10/12/17 10:35 Magnesium 2.10 mg/dL (1.7-2.3) 10/12/17 10:35 Total Bilirubin 0.50 mg/dL (0.1-1.2) 10/10/17 19:00 AST 27 units/L (5-40) 10/10/17 19:00 ALT 38 units/L (7-56) 10/10/17 19:00 Alkaline Phosphatase 211 units/L (35-129) H 10/10/17 19:00 Total Protein 6.3 g/dL (6.3-8.2) 10/10/17 19:00 Albumin 2.2 g/dL (3.9-5) L 10/10/17 19:00 Albumin/Globulin Ratio 0.5 % 10/10/17 19:00 Triglycerides 77 mg/dL (2-149) 10/11/17 04:54 Cholesterol 123 mg/dL (50-199) 10/11/17 04:54 LDL Cholesterol Direct 52 mg/dL (50-130) 10/11/17 04:54 HDL Cholesterol 56 mg/dL (40-59) 10/11/17 04:54 Cholesterol/HDL Ratio 2.19 % 10/11/17 04:54 Miscellaneous Test Scanned into med rec 10/14/17 14:49
[2017-10-16] MEDS: HEPARIN IV PRN (16:15)
[2017-10-16] MEDS: COUMADIN PO SCH (18:40)
[2017-10-16] MEDS: LEVEMIR SUB-Q SCH (22:43)
[2017-10-17 07:10] LABS: INR 1.17 (0.87-1.13)
[2017-10-17] MEDS: NOVOLOG SUB-Q SCH ×4 (08:57→22:38)
--- NOTE | 2017-10-17 09:34 | Progress Note ---
Assessment and Plan 1. ESRD: Continue HD, TTS schedule. 2. Anemia: Continue Oral Iron. Epogen on dialysis days. 3. CVA: Presented with ophthalmoplegia. Symptoms have improved. 4. Diabetes type 2. 5. Lung cancer. 6. Hypertension. 7. Paroxysmal A.fib. On Coumadin. Subjective Date of service: 10/17/17 Principal diagnosis: PAF Interval history: Patient is doing ok. No new complaint. Objective - Vital Signs Vital signs: Vital Signs - 12hr 10/16/17 10/16/17 10/16/17 22:00 22:26 22:33 Temperature Pulse Rate 81 Pulse Rate [ 93 H Left Radial] Pulse Rate [ 88 Right Radial] Respiratory 18 Rate Blood Pressure 118/66 O2 Sat by Pulse 99 Oximetry 10/17/17 07:16 Temperature 99.7 F H Pulse Rate 73 Pulse Rate [ Left Radial] Pulse Rate [ Right Radial] Respiratory 24 Rate Blood Pressure 135/65 O2 Sat by Pulse 90 Oximetry - General Appearance General appearance: well-developed, appears stated age, other (no distress, right IJ tunnel catheter) EENT: ATNC, PERRL, mucous membranes moist, hearing intact Neck: supple Respiratory: Present: Clear to Ascultation Cardiology: regular, S1S2, no murmurs Gastrointestinal: normoactive bowel sounds, no tenderness, no distended Integumentary: no rash, warm and dry Neurologic: no focal deficit, no asterixis Musculoskeletal: other (trace pedal edema) Psychiatric: mood/affect appropriate, cooperative - Lab 10/14/17 07:36 10/14/17 07:36 Most recent lab results Calcium 9.3 mg/dL (8.4-10.2) 10/14/17 07:36 Phosphorus 2.70 mg/dL (2.5-4.5) 10/12/17 10:35 Magnesium 2.10 mg/dL (1.7-2.3) 10/12/17 10:35
[2017-10-17] MEDS: PEPCID PO SCH (10:24)
[2017-10-17] MEDS: ZETIA PO SCH (10:24)
[2017-10-17] MEDS: CORDARONE PO SCH ×2 (10:24→22:25)
[2017-10-17] MEDS: FEOSOL PO SCH ×2 (10:24→22:24)
[2017-10-17] MEDS: LOPRESSOR PO SCH ×2 (10:24→22:25)
[2017-10-17] MEDS: ASPIRIN PO SCH (10:27)
--- NOTE | 2017-10-17 10:29 | Progress Note ---
Assessment and Plan Currently stable cardiac status. Cont coumadin with tx INR 2-3. Will follow on as needed basis. The patient has been seen in conjunction with Dr. Goode who agrees with the assessment and plan of care. - Patient Problems (1) Paroxysmal atrial fibrillation Current Visit: Yes Status: Chronic (2) Acute CVA (cerebrovascular accident) Current Visit: Yes Status: Acute (3) End-stage renal disease on hemodialysis Current Visit: Yes Status: Chronic (4) CAD (coronary artery disease) Current Visit: Yes Status: Chronic Qualifiers: Coronary Disease-Associated Artery/Lesion type: [place] artery [place] vs. transplanted heart: [place] heart (5) Stented coronary artery Current Visit: Yes Status: Chronic (6) Chronic respiratory failure Current Visit: Yes Status: Chronic (7) Diabetes mellitus Current Visit: Yes Status: Chronic Qualifiers: Diabetes mellitus type: type 2 Diabetes mellitus complication status: with other specified complication (8) Hypoglycemia Current Visit: Yes Status: Acute (9) Anemia Current Visit: Yes Status: Chronic (10) Tricuspid regurgitation Current Visit: Yes Status: Chronic (11) Pulmonary HTN Current Visit: Yes Status: Chronic Subjective Date of service: 10/17/17 Principal diagnosis: PAF Interval history: Pt resting comfortably in bed, no current complaints. Remote telemetry was discontinued upon pt transfer. Objective Last Vital Signs Temp 99.7 F H 10/17/17 07:16 Pulse 73 10/17/17 10:24 Resp 24 10/17/17 07:16 BP 135/65 10/17/17 10:24 Pulse Ox 90 10/17/17 07:16 - Physical Examination General: No Apparent Distress HEENT: Positive: PERRL, Normocephaly, Mucus Membranes Moist Neck: Positive: neck supple, trachea midline Cardiac: Positive: Reg Rate and Rhythm, S1/S2 Lungs: Positive: clear to auscultation Neuro: Positive: Grossly Intact Abdomen: Positive: Unremarkable, Soft, Active Bowel Sounds. Negative: Tender Skin: Positive: Clear. Negative: Rash, Wound Musculoskeletal: No Fluid Collection, No Pain, Normal Range of Motion Extremities: Absent: edema - Labs and Meds Coagulation 10/17/17 Range/Units 06:43 PT 15.5 H (12.2-14.9) Sec. INR 1.17 H (0.87-1.13) - Imaging and Cardiology EKG: report reviewed, image reviewed Echo: report reviewed (10/10/2017: RV moderately dilated, RA moderately dilated, moderate to severe TR, severe pulm HTN, RVSP 83mmHg, EF 45-50%, LA moderately dilated, mild MR, mild to mod AR, left pleural effusion) - EKG Sinus rhythms and dysrhythmias: sinus rhythm
--- NOTE | 2017-10-17 14:21 | Progress Note ---
Assessment and Plan Assessment and plan: Patient is a 62-year-old woman with history significant for ESRD on hemodialysis , Hypertension, Type 2 diabetes, CAD, Lung cancer and Anemia was brought to the emergency room from rehab for further evaluation of double vision. The daughter noticed that the left eye was not moving properly. In the ER she was diagnosed with Ophthalmoplegia. symptoms have now resolved MRI brain, image reviewed Multiple bilateral foci of subacute ischemia are identified in the frontal lobes, right occipital lobe and bilateral cerebellar hemispheres. Many of these foci appear to be within watershed regions. A global hypoperfusion episode could be considered. This could also represent multiple bilateral emboli. Please correlate with the patient's clinical history and presentation. Acute ichemic stoke continue cva protocol, allow permissive htn, optimize meds for secondary ppx -case dw neurology MRI confirms CVA, no blockages on MRA brain or carotid dopplers, echo shows EF 50%, no other significant findings -LDL at goal at 54 PAF, with hypercoaguable state -rate fairly controlled -start on eliquis, given extensive embolic cva ELKIN superimposed on CKD stage 4: vasomotor nephropathy Creatinine is 1.7. 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 HD as needed Diabetes type 2 continue insulins Hypertension Coronary artery disease Lung SCC with hypercoaguable state 10/15/17: new issue is p. afib on telemetry. I spoke with Neurologist, Dr. Barnett , urb[place] to start Warfarin, Also, spoke with Jaw Skinner, Dr. Goode. No heparin iv bridge because risk of bleeding, worsening anemia, hemorrhage conversion, etc... per Consultants. Baseline line CT head done, no acute findings. 10/16/17: Awaiting INR to be therapeutic 2-3, managing anticoagulation closely, triate Coumadin dose as needed. 10/17/18: hypoglycemia, stopped levemir 4units at bedtime, give dextrose. INR 1.17 History Interval history: Follow up on CVA. No cp, sob, fevers or chills or headaches. patient go back to [facility]/[place] but they need another pre-certification from patient's insurance. Hospitalist Physical - Physical exam Narrative exam: GEN: wdwn nad a/o x 3 HEENT: perrl, eomi, op clear CVS/HEART: rrr, normal s1s2 LUngs/REsp: ctab, good chest expansion bilateral, good air entry, good breath sounds GI/Abd: soft, ntnd, gbs, no rebound or guarding : no cva tenderness, no paraspinal tenderness MSK: FROM x 3 Ext/Interg: no c/c/e, no new rash Neuro: cn 2-12 grossly intact, + focal deficit Psych: calm - Constitutional Vitals: Temp Pulse Resp BP Pulse Ox 99.7 F H 73 24 135/65 99 10/17/17 07:16 10/17/17 10:24 10/17/17 07:16 10/17/17 10:24 10/17/17 10:00 General appearance: Present: no acute distress Results - Labs CBC & Chem 7: 10/14/17 07:36 10/14/17 07:36 Labs: Laboratory Last Values WBC 13.4 K/mm3 (4.5-11.0) H 10/14/17 07:36 RBC 3.12 M/mm3 (3.65-5.03) L 10/14/17 07:36 Hgb 7.9 gm/dl (10.1-14.3) L 10/14/17 07:36 Hct 26.9 % (30.3-42.9) L 10/14/17 07:36 MCV 86 fl (79-97) 10/14/17 07:36 MCH 25 pg (28-32) L 10/14/17 07:36 MCHC 30 % (30-34) 10/14/17 07:36 RDW 21.5 % (13.2-15.2) H 10/14/17 07:36 Plt Count 256 K/mm3 (140-440) 10/14/17 07:36 Lymph % (Auto) 9.9 % (13.4-35.0) L 10/10/17 19:00 [place] % (Auto) 6.5 % (0.0-7.3) 10/10/17 19:00 Eos % (Auto) 0.3 % (0.0-4.3) 10/10/17 19:00 Baso % (Auto) 0.2 % (0.0-1.8) 10/10/17 19:00 Lymph # 1.1 K/mm3 (1.2-5.4) L 10/10/17 19:00 [place] # 0.7 K/mm3 (0.0-0.8) 10/10/17 19:00 Eos # 0.0 K/mm3 (0.0-0.4) 10/10/17 19:00 Baso # 0.0 K/mm3 (0.0-0.1) 10/10/17 19:00 Seg Neutrophils % 83.1 % (40.0-70.0) H 10/10/17 19:00 Seg Neutrophils # 8.8 K/mm3 (1.8-7.7) H 10/10/17 19:00 ESR > 140.0 mm/Hr (0-20) 10/13/17 13:29 PT 15.5 Sec. (12.2-14.9) H 10/17/17 06:43 INR 1.17 (0.87-1.13) H 10/17/17 06:43 Sodium 135 mmol/L (137-145) L 10/14/17 07:36 Potassium 4.6 mmol/L (3.6-5.0) D 10/14/17 07:36 Chloride 99.8 mmol/L (98-107) 10/14/17 07:36 Carbon Dioxide 19 mmol/L (22-30) L 10/14/17 07:36 Anion Gap 21 mmol/L 10/14/17 07:36 BUN 22 mg/dL (7-17) H 10/14/17 07:36 Creatinine 2.4 mg/dL (0.7-1.2) H 10/14/17 07:36 Estimated GFR 20 ml/min 10/14/17 07:36 BUN/Creatinine Ratio 9 % 10/14/17 07:36 Glucose 37 mg/dL (65-100) L* 10/14/17 07:36 POC Glucose 63 (70-105) L 10/17/17 11:23 Calcium 9.3 mg/dL (8.4-10.2) 10/14/17 07:36 Phosphorus 2.70 mg/dL (2.5-4.5) 10/12/17 10:35 Magnesium 2.10 mg/dL (1.7-2.3) 10/12/17 10:35 Total Bilirubin 0.50 mg/dL (0.1-1.2) 10/10/17 19:00 AST 27 units/L (5-40) 10/10/17 19:00 ALT 38 units/L (7-56) 10/10/17 19:00 Alkaline Phosphatase 211 units/L (35-129) H 10/10/17 19:00 Total Protein 6.3 g/dL (6.3-8.2) 10/10/17 19:00 Albumin 2.2 g/dL (3.9-5) L 10/10/17 19:00 Albumin/Globulin Ratio 0.5 % 10/10/17 19:00 Triglycerides 77 mg/dL (2-149) 10/11/17 04:54 Cholesterol 123 mg/dL (50-199) 10/11/17 04:54 LDL Cholesterol Direct 52 mg/dL (50-130) 10/11/17 04:54 HDL Cholesterol 56 mg/dL (40-59) 10/11/17 04:54 Cholesterol/HDL Ratio 2.19 % 10/11/17 04:54 Miscellaneous Test Scanned into [facility] rec 10/14/17 14:49
[2017-10-17] MEDS: COUMADIN PO SCH (19:01)
[2017-10-18] MEDS ORDERED: D50W (25GM) Syringe IV PRN (07:52)
[2017-10-18] MEDS: NOVOLOG SUB-Q SCH ×4 (09:10→23:05)
[2017-10-18] MEDS: LOPRESSOR PO SCH ×2 (11:03→23:06)
[2017-10-18] MEDS: PEPCID PO SCH (11:03)
[2017-10-18] MEDS: FEOSOL PO SCH ×2 (11:03→23:05)
[2017-10-18] MEDS: ZETIA PO SCH (11:03)
[2017-10-18] MEDS: ASPIRIN PO SCH (11:03)
[2017-10-18] MEDS: CORDARONE PO SCH ×2 (11:12→23:05)
--- NOTE | 2017-10-18 12:15 | Progress Note ---
Assessment and Plan 1. ESRD: Continue HD, TTS schedule. 2. Anemia: Continue Oral Iron. Received Epogen yesterday. 3. CVA: Presented with ophthalmoplegia. Symptoms have improved. 4. Diabetes type 2. 5. Lung cancer. 6. Hypertension. 7. Paroxysmal A.fib. On Coumadin. Subjective Date of service: 10/18/17 Principal diagnosis: PAF Interval history: Patient is doing ok. No new complaint. Objective - Vital Signs Vital signs: Vital Signs - 12hr 10/18/17 10/18/17 08:05 11:03 Temperature 97.8 F Respiratory 16 Rate Blood Pressure 136/64 134/64 - General Appearance General appearance: well-developed, appears stated age, other (no distress, right IJ tunnel catheter) EENT: ATNC, PERRL, hearing intact Neck: supple Respiratory: Present: Clear to Ascultation Cardiology: regular, S1S2, no murmurs Gastrointestinal: normoactive bowel sounds, no tenderness, no distended Integumentary: no rash, warm and dry Neurologic: no focal deficit, no asterixis Musculoskeletal: other (trace pedal edema) Psychiatric: mood/affect appropriate, cooperative - Lab 10/14/17 07:36 10/14/17 07:36 Most recent lab results Calcium 9.3 mg/dL (8.4-10.2) 10/14/17 07:36 Phosphorus 2.70 mg/dL (2.5-4.5) 10/12/17 10:35 Magnesium 2.10 mg/dL (1.7-2.3) 10/12/17 10:35
--- NOTE | 2017-10-18 14:27 | Progress Note ---
Assessment and Plan Assessment and plan: Patient is a 62-year-old woman with history significant for ESRD on hemodialysis , Hypertension, Type 2 diabetes, CAD, Lung cancer and Anemia was brought to the emergency room from rehab for further evaluation of double vision. The daughter noticed that the left eye was not moving properly. In the ER she was diagnosed with Ophthalmoplegia. symptoms have now resolved MRI brain, image reviewed Multiple bilateral foci of subacute ischemia are identified in the frontal lobes, right occipital lobe and bilateral cerebellar hemispheres. Many of these foci appear to be within watershed regions. A global hypoperfusion episode could be considered. This could also represent multiple bilateral emboli. Please correlate with the patient's clinical history and presentation. Acute ichemic stoke continue cva protocol, allow permissive htn, optimize meds for secondary ppx -case dw neurology MRI confirms CVA, no blockages on MRA brain or carotid dopplers, echo shows EF 50%, no other significant findings -LDL at goal at 54 PAF, with hypercoaguable state -rate fairly controlled -start on eliquis, given extensive embolic cva ELKIN superimposed on CKD stage 4: vasomotor nephropathy Creatinine is 1.7. 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 HD as needed Diabetes type 2 continue insulins Hypertension Coronary artery disease Lung SCC with hypercoaguable state 10/15/17: new issue is p. afib on telemetry. I spoke with Neurologist, Dr. Barnett , urbano to start Warfarin, Also, spoke with Engraver Pantograph, Dr. Goode. No heparin iv bridge because risk of bleeding, worsening anemia, hemorrhage conversion, etc... per Consultants. Baseline line CT head done, no acute findings. 10/16/17: Awaiting INR to be therapeutic 2-3, managing anticoagulation closely, triate Coumadin dose as needed. 10/17/17: hypoglycemia, stopped levemir 4units at bedtime, give dextrose. INR 1.17 10/18/17: awaiting INR to be therapeutic, hypoglycemia resolved. INR pending today History Interval history: Follow up on CVA. No cp, sob, fevers or chills or headaches. patient go back to [facility]/[place] but they need another pre-certification from patient's insurance. Hospitalist Physical - Physical exam Narrative exam: GEN: wdwn nad a/o x 3 HEENT: perrl, eomi, op clear CVS/HEART: rrr, normal s1s2 LUngs/REsp: ctab, good chest expansion bilateral, good air entry, good breath sounds GI/Abd: soft, ntnd, gbs, no rebound or guarding : no cva tenderness, no paraspinal tenderness MSK: FROM x 3 Ext/Interg: no c/c/e, no new rash Neuro: cn 2-12 grossly intact, + focal deficit Psych: calm - Constitutional Vitals: Temp Pulse Resp BP Pulse Ox 97.8 F 78 16 134/64 67 L 10/18/17 08:05 10/18/17 00:02 10/18/17 08:05 10/18/17 11:03 10/18/17 00:02 General appearance: Present: no acute distress Results - Labs CBC & Chem 7: 10/14/17 07:36 10/14/17 07:36 Labs: Laboratory Last Values WBC 13.4 K/mm3 (4.5-11.0) H 10/14/17 07:36 RBC 3.12 M/mm3 (3.65-5.03) L 10/14/17 07:36 Hgb 7.9 gm/dl (10.1-14.3) L 10/14/17 07:36 Hct 26.9 % (30.3-42.9) L 10/14/17 07:36 MCV 86 fl (79-97) 10/14/17 07:36 MCH 25 pg (28-32) L 10/14/17 07:36 MCHC 30 % (30-34) 10/14/17 07:36 RDW 21.5 % (13.2-15.2) H 10/14/17 07:36 Plt Count 256 K/mm3 (140-440) 10/14/17 07:36 Lymph % (Auto) 9.9 % (13.4-35.0) L 10/10/17 19:00 [place] % (Auto) 6.5 % (0.0-7.3) 10/10/17 19:00 Eos % (Auto) 0.3 % (0.0-4.3) 10/10/17 19:00 Baso % (Auto) 0.2 % (0.0-1.8) 10/10/17 19:00 Lymph # 1.1 K/mm3 (1.2-5.4) L 10/10/17 19:00 [place] # 0.7 K/mm3 (0.0-0.8) 10/10/17 19:00 Eos # 0.0 K/mm3 (0.0-0.4) 10/10/17 19:00 Baso # 0.0 K/mm3 (0.0-0.1) 10/10/17 19:00 Seg Neutrophils % 83.1 % (40.0-70.0) H 10/10/17 19:00 Seg Neutrophils # 8.8 K/mm3 (1.8-7.7) H 10/10/17 19:00 ESR > 140.0 mm/Hr (0-20) 10/13/17 13:29 PT 15.5 Sec. (12.2-14.9) H 10/17/17 06:43 INR 1.17 (0.87-1.13) H 10/17/17 06:43 Sodium 135 mmol/L (137-145) L 10/14/17 07:36 Potassium 4.6 mmol/L (3.6-5.0) D 10/14/17 07:36 Chloride 99.8 mmol/L (98-107) 10/14/17 07:36 Carbon Dioxide 19 mmol/L (22-30) L 10/14/17 07:36 Anion Gap 21 mmol/L 10/14/17 07:36 BUN 22 mg/dL (7-17) H 10/14/17 07:36 Creatinine 2.4 mg/dL (0.7-1.2) H 10/14/17 07:36 Estimated GFR 20 ml/min 10/14/17 07:36 BUN/Creatinine Ratio 9 % 10/14/17 07:36 Glucose 37 mg/dL (65-100) L* 10/14/17 07:36 POC Glucose 221 (70-105) H 10/18/17 11:55 Calcium 9.3 mg/dL (8.4-10.2) 10/14/17 07:36 Phosphorus 2.70 mg/dL (2.5-4.5) 10/12/17 10:35 Magnesium 2.10 mg/dL (1.7-2.3) 10/12/17 10:35 Total Bilirubin 0.50 mg/dL (0.1-1.2) 10/10/17 19:00 AST 27 units/L (5-40) 10/10/17 19:00 ALT 38 units/L (7-56) 10/10/17 19:00 Alkaline Phosphatase 211 units/L (35-129) H 10/10/17 19:00 Total Protein 6.3 g/dL (6.3-8.2) 10/10/17 19:00 Albumin 2.2 g/dL (3.9-5) L 10/10/17 19:00 Albumin/Globulin Ratio 0.5 % 10/10/17 19:00 Triglycerides 77 mg/dL (2-149) 10/11/17 04:54 Cholesterol 123 mg/dL (50-199) 10/11/17 04:54 LDL Cholesterol Direct 52 mg/dL (50-130) 10/11/17 04:54 HDL Cholesterol 56 mg/dL (40-59) 10/11/17 04:54 Cholesterol/HDL Ratio 2.19 % 10/11/17 04:54 Miscellaneous Test Scanned into [facility] rec 10/14/17 14:49
[2017-10-18 15:24] LABS: INR 1.9 (0.87-1.13)
[2017-10-18] MEDS ORDERED: NACL 0.9 (PRIMING MACHINE ONLY DIALYSIS) MC ONE (15:37)
[2017-10-18] MEDS: COUMADIN PO SCH (17:16)
[2017-10-18] MEDS: Renal Caps PO SCH (17:16)
[2017-10-18] MEDS: HEPARIN IV PRN (21:42)
[2017-10-19 07:44] LABS: INR 2.23 (0.87-1.13)
[2017-10-19] MEDS: NOVOLOG SUB-Q SCH ×4 (10:18→21:46)
[2017-10-19] MEDS: Renal Caps PO SCH (10:18)
[2017-10-19] MEDS: ASPIRIN PO SCH (10:19)
[2017-10-19] MEDS: ZETIA PO SCH (10:19)
[2017-10-19] MEDS: PEPCID PO SCH (10:19)
[2017-10-19] MEDS: FEOSOL PO SCH ×2 (10:19→21:44)
[2017-10-19] MEDS: LOPRESSOR PO SCH ×2 (10:19→21:45)
[2017-10-19] MEDS: CORDARONE PO SCH ×2 (10:19→21:45)
--- NOTE | 2017-10-19 12:31 | Progress Note ---
Assessment and Plan 1. ESRD: Continue HD, TTS schedule. 2. Anemia: Continue Oral Iron and Epogen. 3. CVA: Presented with ophthalmoplegia. Symptoms have improved. 4. Diabetes type 2. 5. Lung cancer. 6. Hypertension. 7. Paroxysmal A.fib. On Coumadin. Await SNF placement. Subjective Date of service: 10/19/17 Principal diagnosis: PAF Interval history: Patient is doing ok. No new complaint. Objective - Vital Signs Vital signs: Vital Signs - 12hr 10/19/17 10/19/17 08:12 10:33 Temperature 97.8 F Pulse Rate 74 Respiratory 14 Rate Blood Pressure 131/63 O2 Sat by Pulse 66 L 92 Oximetry - General Appearance General appearance: well-developed, appears stated age, other (no distress, right IJ tunnel catheter) EENT: ATNC, PERRL, hearing intact Neck: supple Respiratory: Present: Clear to Ascultation Cardiology: regular, S1S2, no murmurs Gastrointestinal: normoactive bowel sounds, no tenderness, no distended Integumentary: no rash, warm and dry Neurologic: no focal deficit, no asterixis Musculoskeletal: other (no edema) Psychiatric: mood/affect appropriate, cooperative - Lab 10/14/17 07:36 10/14/17 07:36 Most recent lab results Calcium 9.3 mg/dL (8.4-10.2) 10/14/17 07:36 Phosphorus 2.70 mg/dL (2.5-4.5) 10/12/17 10:35 Magnesium 2.10 mg/dL (1.7-2.3) 10/12/17 10:35
--- NOTE | 2017-10-19 13:30 | Progress Note ---
Assessment and Plan Assessment and plan: Patient is a 62-year-old woman with history significant for ESRD on hemodialysis , Hypertension, Type 2 diabetes, CAD, Lung cancer and Anemia was brought to the emergency room from rehab for further evaluation of double vision. The daughter noticed that the left eye was not moving properly. In the ER she was diagnosed with Ophthalmoplegia. symptoms have now resolved MRI brain, image reviewed Multiple bilateral foci of subacute ischemia are identified in the frontal lobes, right occipital lobe and bilateral cerebellar hemispheres. Many of these foci appear to be within watershed regions. A global hypoperfusion episode could be considered. This could also represent multiple bilateral emboli. Please correlate with the patient's clinical history and presentation. Acute ichemic stoke continue cva protocol, allow permissive htn, optimize meds for secondary ppx -case dw neurology MRI confirms CVA, no blockages on MRA brain or carotid dopplers, echo shows EF 50%, no other significant findings -LDL at goal at 54 PAF, with hypercoaguable state -rate fairly controlled -start on eliquis, given extensive embolic cva ELKIN superimposed on CKD stage 4: vasomotor nephropathy Creatinine is 1.7. 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 HD as needed Diabetes type 2 continue insulins Hypertension Coronary artery disease Lung SCC with hypercoaguable state 10/15/17: new issue is p. afib on telemetry. I spoke with Neurologist, Dr. Barnett , urbano to start Warfarin, Also, spoke with Chief Security And Safety Officer, Dr. Goode. No heparin iv bridge because risk of bleeding, worsening anemia, hemorrhage conversion, etc... per Consultants. Baseline line CT head done, no acute findings. 10/16/17: Awaiting INR to be therapeutic 2-3, managing anticoagulation closely, triate Coumadin dose as needed. 10/17/17: hypoglycemia, stopped levemir 4units at bedtime, give dextrose. INR 1.17 10/18/17: awaiting INR to be therapeutic, hypoglycemia resolved. INR pending today 10/19/17: SNF placement tomorrow History Interval history: Follow up on CVA. No cp, sob, fevers or chills or headaches. patient go back to [facility]/[place] but they need another pre-certification from patient's insurance. Hospitalist Physical - Physical exam Narrative exam: GEN: wdwn nad a/o x 3 HEENT: perrl, eomi, op clear CVS/HEART: rrr, normal s1s2 LUngs/REsp: ctab, good chest expansion bilateral, good air entry, good breath sounds GI/Abd: soft, ntnd, gbs, no rebound or guarding : no cva tenderness, no paraspinal tenderness MSK: FROM x 3 Ext/Interg: no c/c/e, no new rash Neuro: cn 2-12 grossly intact, + focal deficit Psych: calm - Constitutional Vitals: Temp Pulse Resp BP Pulse Ox 97.8 F 74 14 131/63 92 10/19/17 08:12 10/19/17 08:12 10/19/17 08:12 10/19/17 08:12 10/19/17 10:33 General appearance: Present: no acute distress Results - Labs CBC & Chem 7: 10/14/17 07:36 10/14/17 07:36 Labs: Laboratory Last Values WBC 13.4 K/mm3 (4.5-11.0) H 10/14/17 07:36 RBC 3.12 M/mm3 (3.65-5.03) L 10/14/17 07:36 Hgb 7.9 gm/dl (10.1-14.3) L 10/14/17 07:36 Hct 26.9 % (30.3-42.9) L 10/14/17 07:36 MCV 86 fl (79-97) 10/14/17 07:36 MCH 25 pg (28-32) L 10/14/17 07:36 MCHC 30 % (30-34) 10/14/17 07:36 RDW 21.5 % (13.2-15.2) H 10/14/17 07:36 Plt Count 256 K/mm3 (140-440) 10/14/17 07:36 Lymph % (Auto) 9.9 % (13.4-35.0) L 10/10/17 19:00 [place] % (Auto) 6.5 % (0.0-7.3) 10/10/17 19:00 Eos % (Auto) 0.3 % (0.0-4.3) 10/10/17 19:00 Baso % (Auto) 0.2 % (0.0-1.8) 10/10/17 19:00 Lymph # 1.1 K/mm3 (1.2-5.4) L 10/10/17 19:00 [place] # 0.7 K/mm3 (0.0-0.8) 10/10/17 19:00 Eos # 0.0 K/mm3 (0.0-0.4) 10/10/17 19:00 Baso # 0.0 K/mm3 (0.0-0.1) 10/10/17 19:00 Seg Neutrophils % 83.1 % (40.0-70.0) H 10/10/17 19:00 Seg Neutrophils # 8.8 K/mm3 (1.8-7.7) H 10/10/17 19:00 ESR > 140.0 mm/Hr (0-20) 10/13/17 13:29 PT 26.0 Sec. (12.2-14.9) H 10/19/17 06:58 INR 2.23 (0.87-1.13) H 10/19/17 06:58 Sodium 135 mmol/L (137-145) L 10/14/17 07:36 Potassium 4.6 mmol/L (3.6-5.0) D 10/14/17 07:36 Chloride 99.8 mmol/L (98-107) 10/14/17 07:36 Carbon Dioxide 19 mmol/L (22-30) L 10/14/17 07:36 Anion Gap 21 mmol/L 10/14/17 07:36 BUN 22 mg/dL (7-17) H 10/14/17 07:36 Creatinine 2.4 mg/dL (0.7-1.2) H 10/14/17 07:36 Estimated GFR 20 ml/min 10/14/17 07:36 BUN/Creatinine Ratio 9 % 10/14/17 07:36 Glucose 37 mg/dL (65-100) L* 10/14/17 07:36 POC Glucose 264 (70-105) H 10/19/17 12:18 Calcium 9.3 mg/dL (8.4-10.2) 10/14/17 07:36 Phosphorus 2.70 mg/dL (2.5-4.5) 10/12/17 10:35 Magnesium 2.10 mg/dL (1.7-2.3) 10/12/17 10:35 Total Bilirubin 0.50 mg/dL (0.1-1.2) 10/10/17 19:00 AST 27 units/L (5-40) 10/10/17 19:00 ALT 38 units/L (7-56) 10/10/17 19:00 Alkaline Phosphatase 211 units/L (35-129) H 10/10/17 19:00 Total Protein 6.3 g/dL (6.3-8.2) 10/10/17 19:00 Albumin 2.2 g/dL (3.9-5) L 10/10/17 19:00 Albumin/Globulin Ratio 0.5 % 10/10/17 19:00 Triglycerides 77 mg/dL (2-149) 10/11/17 04:54 Cholesterol 123 mg/dL (50-199) 10/11/17 04:54 LDL Cholesterol Direct 52 mg/dL (50-130) 10/11/17 04:54 HDL Cholesterol 56 mg/dL (40-59) 10/11/17 04:54 Cholesterol/HDL Ratio 2.19 % 10/11/17 04:54 Miscellaneous Test Scanned into med rec 10/14/17 14:49
[2017-10-19] MEDS: COUMADIN PO SCH (18:09)
[2017-10-20 07:36] LABS: Hematocrit 22.2 % (30.3-42.9); Hemoglobin 6.8 gm/dl (10.1-14.3); Mean Corpuscular HGB Conc 31 % (30-34); Mean Corpuscular Hemoglobin 25 pg (28-32); Mean Corpuscular Volume 82 fl (79-97); Platelet Count 318 K/mm3 (140-440); Red Blood Count 2.71 M/mm3 (3.65-5.03); Red Cell Distribution Width 20.4 % (13.2-15.2); White Blood Count 9.5 K/mm3 (4.5-11.0)
[2017-10-20 07:40] LABS: INR 3.67 (0.87-1.13)
[2017-10-20] MEDS: NOVOLOG SUB-Q SCH ×4 (08:35→23:02)
[2017-10-20] MEDS: LOPRESSOR PO SCH ×2 (09:21→22:55)
[2017-10-20] MEDS: FEOSOL PO SCH ×2 (09:21→22:54)
[2017-10-20] MEDS: Renal Caps PO SCH (09:22)
[2017-10-20] MEDS: PEPCID PO SCH (09:22)
[2017-10-20] MEDS: ZETIA PO SCH (09:22)
[2017-10-20] MEDS: CORDARONE PO SCH ×2 (09:22→22:54)
[2017-10-20] MEDS: ASPIRIN PO SCH (09:22)
--- NOTE | 2017-10-20 09:38 | Progress Note ---
Assessment and Plan 1. ESRD: Continue HD, TTS schedule. Clotted left arm AVG. 2. Anemia: One unit of PRBC today. Continue Oral Iron and Epogen. Monitor H/H. 3. CVA: Presented with ophthalmoplegia. Symptoms have improved. 4. Diabetes type 2. 5. Lung cancer. 6. Hypertension. 7. Paroxysmal A.fib. On Coumadin. Await SNF placement. Subjective Date of service: 10/20/17 Principal diagnosis: PAF Interval history: Patient is doing ok. No new complaint. Objective - Vital Signs Vital signs: Vital Signs - 12hr 10/19/17 10/20/17 10/20/17 22:00 07:59 08:42 Temperature 99.1 F Pulse Rate 77 Respiratory 18 19 20 Rate Blood Pressure 147/69 O2 Sat by Pulse 93 83 L Oximetry 10/20/17 09:21 Temperature Pulse Rate 77 Respiratory Rate Blood Pressure 147/69 O2 Sat by Pulse Oximetry - General Appearance General appearance: well-developed, appears stated age, other (no distress, right IJ tunnel catheter) EENT: ATNC, PERRL, hearing intact Neck: supple Respiratory: Present: Clear to Ascultation Cardiology: regular, S1S2, no murmurs Gastrointestinal: normoactive bowel sounds, no tenderness, no distended Integumentary: no rash, warm and dry Neurologic: no focal deficit, no asterixis Musculoskeletal: other (no edema) Psychiatric: mood/affect appropriate, cooperative - Lab 10/20/17 06:56 10/14/17 07:36 Most recent lab results Calcium 9.3 mg/dL (8.4-10.2) 10/14/17 07:36 Phosphorus 2.70 mg/dL (2.5-4.5) 10/12/17 10:35 Magnesium 2.10 mg/dL (1.7-2.3) 10/12/17 10:35
[2017-10-20] MEDS ORDERED: NACL 0.9% 500 ML 500 ML IV ONE (12:00)
--- NOTE | 2017-10-20 15:42 | Progress Note ---
Assessment and Plan Assessment and plan: Patient is a 62-year-old woman with history significant for ESRD on hemodialysis , Hypertension, Type 2 diabetes, CAD, Lung cancer and Anemia was brought to the emergency room from rehab for further evaluation of double vision. The daughter noticed that the left eye was not moving properly. In the ER she was diagnosed with Ophthalmoplegia. symptoms have now resolved MRI brain, image reviewed Multiple bilateral foci of subacute ischemia are identified in the frontal lobes, right occipital lobe and bilateral cerebellar hemispheres. Many of these foci appear to be within watershed regions. A global hypoperfusion episode could be considered. This could also represent multiple bilateral emboli. Please correlate with the patient's clinical history and presentation. Acute ichemic stoke continue cva protocol, allow permissive htn, optimize meds for secondary ppx -case dw neurology MRI confirms CVA, no blockages on MRA brain or carotid dopplers, echo shows EF 50%, no other significant findings -LDL at goal at 54 PAF, with hypercoaguable state -rate fairly controlled -start on eliquis, given extensive embolic cva ELKIN superimposed on CKD stage 4: vasomotor nephropathy Creatinine is 1.7. 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 HD as needed Diabetes type 2 continue insulins Hypertension Coronary artery disease Lung SCC with hypercoaguable state 10/15/17: new issue is p. afib on telemetry. I spoke with Neurologist, Dr. Barnett , urbano to start Warfarin, Also, spoke with Jewel Bearing Facer, Dr. Goode. No heparin iv bridge because risk of bleeding, worsening anemia, hemorrhage conversion, etc... per Consultants. Baseline line CT head done, no acute findings. 10/16/17: Awaiting INR to be therapeutic 2-3, managing anticoagulation closely, triate Coumadin dose as needed. 10/17/17: hypoglycemia, stopped levemir 4units at bedtime, give dextrose. INR 1.17 10/18/17: awaiting INR to be therapeutic, hypoglycemia resolved. INR pending today 10/19/17: SNF placement tomorrow 10/20/17: hgb dropped, will transfuse blood, Inr too high, will hold coumadin tonight, no signs of bleeding. hopefully d/c to [facility] tomorrow if h/h, inr stable History Interval history: Follow up on CVA. No cp, sob, fevers or chills or headaches. patient go back to [facility] but they need another pre-certification from patient's insurance. Hospitalist Physical - Physical exam Narrative exam: GEN: wdwn nad a/o x 3 HEENT: perrl, eomi, op clear CVS/HEART: rrr, normal s1s2 LUngs/REsp: ctab, good chest expansion bilateral, good air entry, good breath sounds GI/Abd: soft, ntnd, gbs, no rebound or guarding : no cva tenderness, no paraspinal tenderness MSK: FROM x 3 Ext/Interg: no c/c/e, no new rash Neuro: cn 2-12 grossly intact, + focal deficit Psych: calm - Constitutional Vitals: Temp Pulse Resp BP Pulse Ox 99.1 F 77 20 147/69 90 10/20/17 07:59 10/20/17 09:21 10/20/17 08:42 10/20/17 09:21 10/20/17 10:00 General appearance: Present: no acute distress Results - Labs CBC & Chem 7: 10/20/17 06:56 10/14/17 07:36 Labs: Laboratory Last Values WBC 9.5 K/mm3 (4.5-11.0) 10/20/17 06:56 RBC 2.71 M/mm3 (3.65-5.03) L 10/20/17 06:56 Hgb 6.8 gm/dl (10.1-14.3) L 10/20/17 06:56 Hct 22.2 % (30.3-42.9) L 10/20/17 06:56 MCV 82 fl (79-97) 10/20/17 06:56 MCH 25 pg (28-32) L 10/20/17 06:56 MCHC 31 % (30-34) 10/20/17 06:56 RDW 20.4 % (13.2-15.2) H 10/20/17 06:56 Plt Count 318 K/mm3 (140-440) 10/20/17 06:56 Lymph % (Auto) 9.9 % (13.4-35.0) L 10/10/17 19:00 [place] % (Auto) 6.5 % (0.0-7.3) 10/10/17 19:00 Eos % (Auto) 0.3 % (0.0-4.3) 10/10/17 19:00 Baso % (Auto) 0.2 % (0.0-1.8) 10/10/17 19:00 Lymph # 1.1 K/mm3 (1.2-5.4) L 10/10/17 19:00 [place] # 0.7 K/mm3 (0.0-0.8) 10/10/17 19:00 Eos # 0.0 K/mm3 (0.0-0.4) 10/10/17 19:00 Baso # 0.0 K/mm3 (0.0-0.1) 10/10/17 19:00 Seg Neutrophils % 83.1 % (40.0-70.0) H 10/10/17 19:00 Seg Neutrophils # 8.8 K/mm3 (1.8-7.7) H 10/10/17 19:00 ESR > 140.0 mm/Hr (0-20) 10/13/17 13:29 PT 38.8 Sec. (12.2-14.9) H 10/20/17 06:56 INR 3.67 (0.87-1.13) H 10/20/17 06:56 Sodium 135 mmol/L (137-145) L 10/14/17 07:36 Potassium 4.6 mmol/L (3.6-5.0) D 10/14/17 07:36 Chloride 99.8 mmol/L (98-107) 10/14/17 07:36 Carbon Dioxide 19 mmol/L (22-30) L 10/14/17 07:36 Anion Gap 21 mmol/L 10/14/17 07:36 BUN 22 mg/dL (7-17) H 10/14/17 07:36 Creatinine 2.4 mg/dL (0.7-1.2) H 10/14/17 07:36 Estimated GFR 20 ml/min 10/14/17 07:36 BUN/Creatinine Ratio 9 % 10/14/17 07:36 Glucose 37 mg/dL (65-100) L* 10/14/17 07:36 POC Glucose 147 (70-105) H 10/20/17 11:33 Calcium 9.3 mg/dL (8.4-10.2) 10/14/17 07:36 Phosphorus 2.70 mg/dL (2.5-4.5) 10/12/17 10:35 Magnesium 2.10 mg/dL (1.7-2.3) 10/12/17 10:35 Total Bilirubin 0.50 mg/dL (0.1-1.2) 10/10/17 19:00 AST 27 units/L (5-40) 10/10/17 19:00 ALT 38 units/L (7-56) 10/10/17 19:00 Alkaline Phosphatase 211 units/L (35-129) H 10/10/17 19:00 Total Protein 6.3 g/dL (6.3-8.2) 10/10/17 19:00 Albumin 2.2 g/dL (3.9-5) L 10/10/17 19:00 Albumin/Globulin Ratio 0.5 % 10/10/17 19:00 Triglycerides 77 mg/dL (2-149) 10/11/17 04:54 Cholesterol 123 mg/dL (50-199) 10/11/17 04:54 LDL Cholesterol Direct 52 mg/dL (50-130) 10/11/17 04:54 HDL Cholesterol 56 mg/dL (40-59) 10/11/17 04:54 Cholesterol/HDL Ratio 2.19 % 10/11/17 04:54 Miscellaneous Test Scanned into [facility] rec 10/14/17 14:49 Blood Type O POSITIVE 10/20/17 11:40 Antibody Screen Negative 10/20/17 11:40 Crossmatch See Detail 10/20/17 11:40
[2017-10-20] MEDS ORDERED: COUMADIN NO DOSE TODAY PO ONE (17:00)
[2017-10-21 07:15] LABS: INR 3.66 (0.87-1.13)
[2017-10-21 07:19] LABS: Basophils % (Auto) 0.6 % (0.0-1.8); Eosinophils % (Auto) 0.3 % (0.0-4.3); Hematocrit 29.1 % (30.3-42.9); Hemoglobin 9.2 gm/dl (10.1-14.3); Mean Corpuscular HGB Conc 32 % (30-34); Mean Corpuscular Hemoglobin 26 pg (28-32); Mean Corpuscular Volume 83 fl (79-97); Platelet Count 337 K/mm3 (140-440); Red Blood Count 3.49 M/mm3 (3.65-5.03); Red Cell Distribution Width 19.6 % (13.2-15.2); White Blood Count 10.9 K/mm3 (4.5-11.0)
[2017-10-21 07:27] LABS: Chloride 96.8 mmol/L (98-107); Potassium 3.2 mmol/L (3.6-5.0)
--- NOTE | 2017-10-21 08:00 | Progress Note ---
Assessment and Plan 1. ESRD: Continue HD, TTS schedule. Clotted left arm AVG. 2. Anemia: S/p one unit of PRBC yesterday. Continue Oral Iron and SQ Epogen. Monitor H/H. 3. CVA: Presented with ophthalmoplegia. Symptoms have improved. 4. Diabetes type 2. 5. Lung cancer. 6. Hypertension. 7. Paroxysmal A.fib. On Coumadin. Await SNF placement. Subjective Date of service: 10/21/17 Principal diagnosis: PAF Interval history: Patient is doing ok. No new complaint. Objective - Vital Signs Vital signs: Vital Signs - 12hr 10/20/17 10/20/17 10/20/17 20:25 21:01 22:55 Pulse Rate 71 Pulse Rate [ 84 Left Radial] Blood Pressure 143/74 O2 Sat by Pulse 95 Oximetry - General Appearance General appearance: well-developed, appears stated age, other (no distress, right IJ tunnel catheter) EENT: ATNC, PERRL, hearing intact Neck: supple Respiratory: Present: Clear to Ascultation Cardiology: regular, S1S2, no murmurs Gastrointestinal: normoactive bowel sounds, no tenderness, no distended Integumentary: no rash, warm and dry Neurologic: no focal deficit, no asterixis Musculoskeletal: other (no edema) Psychiatric: mood/affect appropriate, cooperative - Lab 10/21/17 06:47 10/21/17 06:47 Most recent lab results Calcium 9.0 mg/dL (8.4-10.2) 10/21/17 06:47 Phosphorus 2.70 mg/dL (2.5-4.5) 10/12/17 10:35 Magnesium 2.10 mg/dL (1.7-2.3) 10/12/17 10:35
[2017-10-21] MEDS: FEOSOL PO SCH (10:27)
[2017-10-21] MEDS: PEPCID PO SCH (10:27)
[2017-10-21] MEDS: ZETIA PO SCH (10:27)
[2017-10-21] MEDS: ASPIRIN PO SCH (10:27)
--- NOTE | 2017-10-21 11:59 | Discharge Summary ---
Providers - Providers Date of Admission: 10/10/17 22:12 Date of discharge: 10/21/17 Attending physician: WENDY BURRELL 10/10/17 Consult to Physician [CONS] Routine Consulting Provider: ANN MOTA Reason For Exam: blurry vision Place consult to:: neuro Notified:: n Comment:: added to list Consult to Physician [CONS] Routine Consulting Provider: ELAINE VARGAS Reason For Exam: hd Place consult to:: davidson Notified:: eyal 10/10/17 23:22 Occupational Therapy Evaluate and Treat [CONS] Routine Comment: Reason For Exam: Neuro deficits Physical Therapy Evaluation and Treat [CONS] Routine Comment: Reason For Exam: Neuro deficits 10/14/17 12:25 Consult to Physician [CONS] Routine Consulting Provider: FRANK GUIDO Reason For Exam: PAF, embolic cva Place consult to:: Dr. Sesay Notified:: Tatyana STRATTON Was contact made?: Yes If yes, spoke with:: Leidy Lopez Time called:: 13:27 Primary care physician: NILA RODRIGUEZ Hospitalization Condition: Stable Hospital course: Patient is a 62-year-old woman with history significant for ESRD on hemodialysis , Hypertension, Type 2 diabetes, CAD, Lung cancer and Anemia was brought to the emergency room from rehab for further evaluation of double vision. The daughter noticed that the left eye was not moving properly. In the ER she was diagnosed with Ophthalmoplegia, which has now resolved MRI brain, image reviewed Multiple bilateral foci of subacute ischemia are identified in the frontal lobes, right occipital lobe and bilateral cerebellar hemispheres. Many of these foci appear to be within watershed regions. A global hypoperfusion episode could be considered. This could also represent multiple bilateral emboli. Please correlate with the patient's clinical history and presentation. Acute ichemic stoke continue cva protocol, allow permissive htn, optimize meds for secondary ppx -case dw neurology MRI confirms CVA, no blockages on MRA brain or carotid dopplers, echo shows EF 50%, no other significant findings -LDL at goal at 54 PAF, with hypercoaguable state -rate fairly controlled -start on eliquis, given extensive embolic cva ELKIN superimposed on CKD stage 4: vasomotor nephropathy Creatinine is 1.7. 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 HD as needed Diabetes type 2 continue insulins Hypertension Coronary artery disease Lung SCC with hypercoaguable state on a/c 10/15/17: new issue is p. afib on telemetry. I spoke with Neurologist, urbano Wei to start Warfarin, Also, spoke with Spar Machine Operator Helper, Dr. Goode. No heparin iv bridge because risk of bleeding, worsening anemia, hemorrhage conversion, etc... per Consultants. Baseline line CT head done, no acute findings. 10/16/17: Awaiting INR to be therapeutic 2-3, managing anticoagulation closely, triate Coumadin dose as needed. 10/17/17: hypoglycemia, stopped levemir 4units at bedtime, give dextrose. INR 1.17 10/18/17: awaiting INR to be therapeutic, hypoglycemia resolved. INR pending today 10/19/17: SNF placement tomorrow 10/20/17: d/c held b/c drop in hct and received blood, 1 unit prbc, most likely due to acute on chronic anemia of renal disease 10/21/17: h/h stable after only 1 unit, will discharge. hold Coumadin today, recheck PT/INR tomorrow and if levels are between 2-3, re-start Ms. Coker on Warfarin/Coumadin on 2.5 mg/day D/c [facility] today Disposition: [place]-03 SNF [facility] Time spent for discharge: 37 minutes Core Measure Documentation - Palliative Care Palliative Care/ Comfort Measures: Not Applicable - Core Measures Any of the following diagnoses?: stroke - VTE Discharge Requirements Deep Vein Thrombosis/Pulmonary Embolism Present on Admission: No Has pt received <5 days of overlap therapy or INR<2.0: No Anticoagulant overlap therapy prescribed at discharge: No Contraindication No Overlap Therapy order at DC: Not Indicated - Stroke Discharge Requirements Statin for LDL = or >70 mg/dl on DC: Yes Anticoag for atrial fib/atrial flutter: Yes Antithrombotic for ischemic stroke: Yes Exam - Physical Exam Narrative exam: GEN: wdwn nad a/o x 3 HEENT: perrl, eomi, op clear CVS/HEART: rrr, normal s1s2 LUngs/REsp: ctab, good chest expansion bilateral, good air entry, good breath sounds GI/Abd: soft, ntnd, gbs, no rebound or guarding : no cva tenderness, no paraspinal tenderness MSK: FROM x 3 Ext/Interg: no c/c/e, no new rash Neuro: cn 2-12 grossly intact, + focal deficit Psych: calm - Constitutional Vitals: Temp Pulse Resp BP Pulse Ox 98.2 F 72 20 136/70 70 L 10/21/17 07:58 10/21/17 07:58 10/21/17 08:53 10/21/17 07:58 10/21/17 07:58 Plan Activity: up only with assistance, fall precautions, other (no strenous activity until cleared by pcp) Diet: diabetic, renal Special Instructions: record daily BP diary, record blood sugar diary Additional Instructions: recheck PT/INR tomorrow WED 10/22/17 and if INR level is between 2-3, re-start Ms. Coker on Warfarin/Coumadin on 2.5 mg/day Follow up with: NILA RODRIGUEZ MD [Primary Care Provider] - 3-5 Days Forms: Warfarin Discharge Instruction Prescriptions: Warfarin [Coumadin] 2.5 mg PO QDAY #30 tablet
[2017-10-21] MEDS ORDERED: NACL 0.9 (PRIMING MACHINE ONLY DIALYSIS) MC ONE (14:08)
[2017-10-21 16:34] VITALS: BP 124/67
[2017-10-21] MEDS ORDERED: COUMADIN NO DOSE TODAY PO ONE (17:00)
--- NOTE | 2017-10-27 12:09 | Query- Present on Admission ---
Dear Mervin Date:___10/27/17 Supervising Nurse/CDS:____Rogerssa / Júnior Phone#:___[phone] Exercise your independent professional judgment when responding to this query. Questions asked do not imply a particular answer is desired or expected. We greatly appreciate your clarification on this issue. Clinical Documentation States: 62 year old female was admitted on 10/10/17 The discharge summary (Dr. Jeffries) states " Patient is a 62-year-old woman with history significant for ESRD on hemodialysis, Hypertension, Type 2 diabetes, CAD , Lung cancer and Anemia was brought to the emergency room from rehab for further evaluation of double vision. " The progress note (Dr. Mcgarry 10/14/17) states " AVG clot -cw Vascular surgery, no intervention planned on the AVG -she will continue to use her Permacath for HD -fully anticoagulated " Clinical Findings Show: Based on the above clinical scenario and your knowledge of the patient's case please clarify if the diagnosis stated below was present on admission: Diagnosis: ____AVG clot Present on admission : [ x] Yes (Y) [ ] Clinically undeterminable(W) [ ] No(N) Please also document response in your Progress Notes and/or Discharge Summary and indicate if the condition was present on admission. MARYD
[2017-11-05 13:46] LABS: ALKFISH SCANNED INTO MED REC
[2017-11-05 13:47] LABS: Epidermal Growth Factor Recept SCANNED INTO MED REC
== END 2017-10-21 20:20 | DRG 64 ==
LOC: ED 17:25 → 4A 22:12 → 3A 10-15 17:59 → UNDODISIN 10-17 16:13
PROVIDERS: ADMIT Internal Medicine; ATTEND Internal Medicine
PROC: 5A1D70Z Performance of Urinary Filtration, Intermittent, Less than 6 Hours Per Day (ICD-10-PCS; principal; 2017-10-16)
PROC: 5A1D70Z Performance of Urinary Filtration, Intermittent, Less than 6 Hours Per Day (ICD-10-PCS; 2017-10-18)
PROC: 30233N1 Transfusion of Nonautologous Red Blood Cells into Peripheral Vein, Percutaneous Approach (ICD-10-PCS; 2017-10-20)
PROC: 5A1D70Z Performance of Urinary Filtration, Intermittent, Less than 6 Hours Per Day (ICD-10-PCS; 2017-10-21)
DX: I63.9 Cerebral infarction, unspecified (principal); N17.0 Acute kidney failure with tubular necrosis; N18.6 End stage renal disease; T82.868A Thrombosis due to vascular prosthetic devices, implants and grafts, initial encounter; I12.0 Hypertensive chronic kidney disease with stage 5 chronic kidney disease or end stage renal disease; D68.59 Other primary thrombophilia; J96.10 Chronic respiratory failure, unspecified whether with hypoxia or hypercapnia; C34.90 Malignant neoplasm of unspecified part of unspecified bronchus or lung; Z88.8 Allergy status to other drugs, medicaments and biological substances; J44.9 Chronic obstructive pulmonary disease, unspecified; Z85.118 Personal history of other malignant neoplasm of bronchus and lung; I25.10 Atherosclerotic heart disease of native coronary artery without angina pectoris; I25.2 Old myocardial infarction; Z98.49 Cataract extraction status, unspecified eye; Z79.4 Long term (current) use of insulin; H53.8 Other visual disturbances; E87.6 Hypokalemia; E11.22 Type 2 diabetes mellitus with diabetic chronic kidney disease; Z99.2 Dependence on renal dialysis; Z90.49 Acquired absence of other specified parts of digestive tract; Z82.49 Family history of ischemic heart disease and other diseases of the circulatory system; Z79.899 Other long term (current) drug therapy; H51.22 Internuclear ophthalmoplegia, left eye; Z87.891 Personal history of nicotine dependence; E11.649 Type 2 diabetes mellitus with hypoglycemia without coma; I07.1 Rheumatic tricuspid insufficiency; I27.20 Pulmonary hypertension, unspecified; I48.91 Unspecified atrial fibrillation; D63.1 Anemia in chronic kidney disease
CPT/HCPCS: 36415; 70450; 70544; 70551; 80048; 80053; 80061; 81235; 82962; 83735; 84100; 85025; 85027; 85610; 85652; 86850; 86900; 86901; 86920; 87040; 88271; 88275; 88291; 93005; 93010; 93306; 93880; 94760; A9270-GY; J0885; J1644; J1650; J1815; J1818; J7030; J7040; P9016